=== PATIENT | male | born 1950 | race Caucasian/White ===

== ENCOUNTER 2019-10-12 13:23 | Outpatient (CLI) | payer MEDICARE, SELFPAY ==
--- NOTE | ~2019-10-12 | CT_ITS ---
EXAMINATION: CT lung screening DATE: 10/12/2019 14:01 INDICATION: Personal history of tobacco dependence, current smoker with 45 pack year history TECHNIQUE: Computed tomography (CT) of the chest was performed without intravenous contrast. The dose -length product (DLP) was 396.06 mGy-cm. Automated exposure control and iterative reconstruction tech Daily Aisle were employed. COMPARISON: 08/07/2018 FINDINGS: There is mild emphysema. No suspicious pulmonary nodules are identified. Calcified pulmonar y nodules are consistent with old granulomatous disease. There is no pleural effusion or pneumothorax . The heart size is normal. Calcified coronary artery atherosclerosis is noted. There are no patholog ically enlarged thoracic lymph nodes. Dense calcification of the mitral annulus is noted. There is un changed severe spondylosis at several levels of the lower cervical and thoracic spine. IMPRESSION: 1. Lung-RADS category 1: Negative. Continue annual screening with noncontrast low-dose chest CT in 12 months. Reviewed, dictated and finalized at location A. IMPRESSION: 1. Lung-RADS category 1: Negative. Continue annual screening with noncontrast l ow-dose chest CT in 12 months.
== END 2019-10-12 13:24 | disposition home or self-care (01) ==
PROVIDERS: PCP Family Medicine; Visit Provider Internal Medicine Critical Care Medicine
DX: Z12.2 Encounter for screening for malignant neoplasm of respiratory organs (principal); Z87.891 Personal history of nicotine dependence
CPT/HCPCS: G0297

== ENCOUNTER 2020-05-25 07:55 | Outpatient (CLI) | payer MEDICARE, SELFPAY ==
--- NOTE | ~2020-05-25 | US_ITS ---
EXAMINATION: US art doppler w press LE BI DATE: 05/25/2020 09:00 INDICATION: Peripheral vascular disease, unspecified. TECHNIQUE: Segmental pressures and plethysmographic and Doppler waveforms of the brachial and lower e xtremity arteries were obtained. COMPARISON: None. FINDINGS: Right and left brachial artery pressures of 119 mm Hg and 123 mm Hg, respectively, are concordant (no rmal difference <= 30 mmHg). The right high-thigh pressure index is 1.39 (normal > 1.2). The right ankle-brachial index (DARREL) is 1 .03 (normal >= 0.9-1.0). The right great toe-brachial index (TBI) is 0.46 (normal >= 0.65). Arterial Doppler waveforms are biphasic in common femoral artery and superficial femoral artery, triphasic in popliteal artery, and biphasic at the ankle. The left high-thigh pressure could not be measured due to inability to cuff occlude the arteries. The right low-thigh pressure index is 1.04. The left DARREL is 1.05. The left TBI is 0.52. Arterial Doppler waveforms are biphasic from common femoral artery to the ankle. IMPRESSION: 1. Normal ABIs and decreased TBIs, consistent with arterial occlusive disease. Note that ABIs may be overestimated if arteries are calcified. Reviewed, dictated and finalized at location A. F MECHANICAL ENGINEER
== END 2020-05-25 07:56 | disposition home or self-care (01) ==
LOC: ANHIMG 08:03
PROVIDERS: PCP Family Medicine; Visit Provider Family Medicine
DX: I73.9 Peripheral vascular disease, unspecified (principal); R23.0 Cyanosis
CPT/HCPCS: 93923

== ENCOUNTER 2020-08-10 17:46 | Outpatient (CLI) | payer MEDICARE, SELFPAY | END 2020-08-10 17:47 | disposition home or self-care (01) | LOC: ANHCOVIDVC 17:46 | PROVIDERS: PCP Family Medicine | DX: Z23 Encounter for immunization (principal) | CPT/HCPCS: 0001A; 91300 ==

== ENCOUNTER 2020-08-31 17:29 | Outpatient (CLI) | payer MEDICARE, SELFPAY | END 2020-08-31 17:30 | disposition home or self-care (01) | LOC: ANHCOVIDVC 17:29 | PROVIDERS: PCP Family Medicine | DX: Z23 Encounter for immunization (principal) | CPT/HCPCS: 0002A; 91300 ==

== ENCOUNTER 2021-06-12 10:37 | Outpatient (CLI) | payer MEDICARE, SELFPAY ==
--- NOTE | ~2021-06-12 | CT_ITS ---
EXAMINATION: CT lung screening DATE: 06/12/2021 11:03 INDICATION: Z87.891 - Personal history of nicotine dependence TECHNIQUE: Computed tomography (CT) of the chest was performed without intravenous contrast. Addition al 3D reconstructions utilizing coronal maximum intensity projection (MIP) were performed. Automated exposure control and iterative reconstruction technique were employed. The dose-length product was 60 4.14 mGy-cm. COMPARISON: 10/12/2019 FINDINGS: There are a few unchanged very small scattered calcified pulmonary nodules in the bilateral upper lob es consistent with old granulomatous disease. No other suspicious pulmonary nodules, pneumonia, pulmo nary edema or pleural effusion. Small pneumatocele in the left lower lobe. Heart size is normal. Athe rosclerotic coronary artery calcifications. No pericardial effusion. Thoracic aorta is normal in cheryl reina. No pathologically enlarged thoracic lymphadenopathy. Visualized upper abdomen is unremarkable. S evere spondylosis in the lower cervical and upper and mid thoracic spine. IMPRESSION: 1. Lung-RADS category 1: Negative. Continue annual screening with noncontrast low-dose chest CT in 12 months. Reviewed, dictated and finalized at location A. WHEEL OPERATOR IMPRESSION: 1. Lung-RADS category 1: Negative. Continue annual screening with noncontrast l ow-dose chest CT in 12 months.
== END 2021-06-12 10:38 | disposition home or self-care (01) ==
LOC: ANHIMG 10:41
PROVIDERS: PCP Family Medicine; Visit Provider Nurse Practitioner Family
DX: Z12.2 Encounter for screening for malignant neoplasm of respiratory organs (principal); Z87.891 Personal history of nicotine dependence
CPT/HCPCS: 71271

== ENCOUNTER 2022-06-13 08:10 | Outpatient (CLI) | payer MEDICARE, SELFPAY ==
--- NOTE | ~2022-06-13 | CT_ITS ---
EXAMINATION:CT lung screening DATE: 06/13/2022 08:26 INDICATION: Lung cancer screening. Current smoker with 100 pack year history. TECHNIQUE: Computed tomography (CT) of the chest was performed without intravenous contrast. Automate d exposure control and iterative reconstruction technique were employed. The dose-length product (DLP ) was 491.74 mGy-cm. COMPARISON: Chest CT 06/12/2021 FINDINGS: There is mild emphysema. There is a 2 mm nodule in right upper lobe. Calcified bilateral keith ng nodules are consistent with old granulomatous disease. There is mild atelectasis. No pleural effus ion. The heart size is normal. There are coronary artery calcifications. No pericardial effusion. The re is severe cervical and thoracic spondylosis. IMPRESSION: 1. Lung-RADS category 2: Benign appearance or behavior. Continue annual screening with noncontrast lo w-dose chest CT in 12 months. Reviewed, dictated and finalized at location A. ATION SUPERVISOR IMPRESSION: 1. Lung-RADS category 2: Benign appearance or behavior. Continue annual screeni ng with noncontrast low-dose chest CT in 12 months.
== END 2022-06-13 08:11 | disposition home or self-care (01) ==
PROVIDERS: PCP Family Medicine; Visit Provider Physician Assistant
DX: Z12.2 Encounter for screening for malignant neoplasm of respiratory organs (principal); Z87.891 Personal history of nicotine dependence
CPT/HCPCS: 71271

== ENCOUNTER 2022-09-05 08:05 | Outpatient (CLI) | payer MEDICARE, SELFPAY ==
--- NOTE | 2022-10-01 11:21 | WPDSLEEPSTUD ---
Sleep Study Date of Study: 09/05/22 Ordering Provider: ROMA Herrera Interpreting Physician: Dede Munoz DO Sleep Study Type: BiPAP Titration Height: 1.75 m Weight: 138.346 kg Body Mass Index: 45.0 Neck Circumference (inches): 16 [place]: 5 Reason for Sleep Study Abnormal nocturnal oximetry while on CPAP 14 cm H2O with an EPR of 3. Sleep History The patient is a 71-year-old male with anemia, benign prostatic hyperplasia, morbid obesity, Parkinson's disease, peripheral vascular disease, venous stasis dermatitis of bilateral lower extremities, current tobacco use, COPD and MARTIN on CPAP that had a sleep study ordered by the Pulmonary group for further evaluation of an abnormal nocturnal oximetry while on CPAP. The patient denies awakening from sleep short of breath. He rarely awakens at night with heartburn, belching or cough. He denies snoring loudly enough that others complain. He denies having trouble sleeping when he has a cold. He denies waking up gasping for air throughout the night. He rarely has breathing problems at night observed by himself or others. He denies sweating excessively at night. He denies having heart palpitations or irregular heartbeats during the night. He rarely falls asleep during the day and never falls asleep while driving. He denies sleep paralysis, cataplexy and hypnagogic / hypnopompic hallucinations. He denies having trouble at school or work due to sleepiness. He denies feeling afraid of going to sleep. He denies having nightmares and denies remembering his dreams. He denies having thoughts racing through his mind. He denies feeling sad, depressed or anxious. He denies having muscular tension. He rarely notices parts of his body jerk. He rarely kicks during the night. He denies having crawling and aching feelings in his legs. He rarely has leg pain during the night. He denies grinding his teeth during sleep and denies awakening with morning jaw pain. He is rarely bothered by pain during the day and rarely awakened by pain during the night. He rarely wakes up feeling stiff in the morning. He rarely wakes up with sore or achy muscles. He rarely wakes up with pain in the neck, spine and other joints. The patient does not have a set bedtime or set wake-up time. He typically wakes up once throughout the night to urinate. He typically gets 6 hours of sleep per night. He currently lives with a friend. He does not consume any caffeinated beverages within 2 hours of bedtime. He does not engage in physical exercise before bedtime. He will read and watch television before falling asleep. He denies taking naps in the afternoon or the evening. He does consume caffeinated beverages throughout the day. He currently smokes half a pack of cigarettes per day. He consumes alcoholic beverages daily. He denies recreational drug use. [facility] Past Medical History Medical History Abdominal aortic aneurysm (AAA) 3.0 cm to 5.5 cm in diameter in male infrarenal AAA followed by vascular surgeon with current 3.8 cm by ultrasound 12/27/2020 Anemia Hemoglobin 12.5, hematocrit 38.6, iron 58, vitamin B12 852, folic acid 4.7 on 09/15/2021. Hemoglobin normal at 13.6 on 05/14/2022. BMI 38.0-38.9,adult BMI 45.0-49.9, adult Body mass index (BMI) 40.0-44.9, adult (10/06/18) BPH without obstruction/lower urinary tract symptoms PSA normal at 0.17 on 05/09/2021 Chronic pain of right knee Encounter for hepatitis C screening test for low risk patient (07/30/20) hepatitis-C screening negative on 07/30/2020 Encounter for prostate cancer screening PSA 0.76 on 05/14/2022. Folic acid deficiency (09/15/21) level low at 4.7 on 09/15/2021. Level normal at 11.5 on 05/14/2022 with hemoglobin 13.6. Fungal nail infection Insomnia Morbid obesity with BMI of 40.0-44.9, adult Morbid obesity with BMI of 45.0-49.9, adult Parkinsons Peripheral vascular disease Polyp
[2022-10-01 12:02] VITALS: BMI 45.0
== END 2022-09-06 06:17 | disposition home or self-care (01) ==
LOC: ANHCSM 08:06
PROVIDERS: PCP Family Medicine; Visit Provider Physician Assistant
DX: G47.33 Obstructive sleep apnea (adult) (pediatric) (principal); Z99.89 Dependence on other enabling machines and devices; E66.01 Morbid (severe) obesity due to excess calories; Z68.42 Body mass index [BMI] 45.0-49.9, adult; F17.210 Nicotine dependence, cigarettes, uncomplicated
CPT/HCPCS: 95811

== ENCOUNTER 2023-03-06 08:47 | Outpatient (CLI) | payer MEDICARE, SELFPAY ==
[2023-03-06 09:00] VITALS: PULSE 78; O2SAT 97
[2023-03-06 09:05] VITALS: PULSE 100; O2SAT 93
[2023-03-06 09:15] VITALS: PULSE 80; O2SAT 96
--- NOTE | 2023-03-06 09:20 | HOMEO2EVAL ---
Evaluation was performed at [facility] Home Oxygen Evaluation RC: Home Oxygen (O2) Evaluation Start: 03/06/23 09:18 Freq: Status: Active Protocol: RPE Activity Type Activity Date Activity User E-sign Co-sign Detail Recorded Client Recorded Date Recorded By Document 03/06/23 09:00 DJO [email or web address] 03/06/23 09:20 DJO Document 03/06/23 09:05 DJO [email or web address] 03/06/23 09:20 DJO Document 03/06/23 09:15 [email or web address] [email or web address] 03/06/23 09:20 DJO 03/06/23 03/06/23 03/06/23 09:00 09:05 09:15 Home O2 Evaluation [Oxygen] -Test Phase Resting Exercise Resting -Oxygen Delivery Room Air Room Air Room Air [Pulse Oximetry] -Pulse Oximetry (90-100 %) 97 93 96 [Pulse Rate] -Pulse Rate (60-100 beats/min) 78 100 80 [Evaluation] -Activity Tolerance Good [Charges] -Treatment Charges O2 Evaluation - Outpatient
--- NOTE | 2023-03-06 15:25 | WPDPFTINT ---
PFT Procedure Performed PFT Procedure Performed Spirometry with Pre/Post Bronchodilator Plethysmography (Lung Vol) Diffusing Cap (DLCO) Flow Vol Loop PFT Interpretation Lung volumes were measured with the body plethysmography method. Lung volumes are unremarkable. Spirometry showed diminished expiratory flow rates and a diminished FEV1 to FVC ratio of 63%, indicative of obstructive airway disease. Following administration of a bronchodilator there was no significant increase in the expiratory flow rates. Lung diffusion capacity is mildly reduced at 60% predicted. The flow-volume loop is consistent with obstructive airway disease. Impression: Moderate obstructive airway disease with no response to bronchodilators on this testing. Mild reduction in lung diffusion capacity.
== END 2023-03-06 08:48 | disposition home or self-care (01) ==
PROVIDERS: PCP Family Medicine; Visit Provider Physician Assistant
DX: J44.9 Chronic obstructive pulmonary disease, unspecified (principal)
CPT/HCPCS: 94060; 94618; 94726; 94729

== ENCOUNTER 2023-03-20 09:01 | Outpatient (CLI) | payer MEDICARE, SELFPAY ==
--- NOTE | 2023-03-20 11:15 | NEURO_ITS ---
Impression: # Complains of numbness of hands. # Severe bilateral Carpal Tunnel Syndrome. # Bilateral ulnar neuropathy across the elbows. # Needle/EMG exam abnormal with neurogenic changes. # Clinical correlation recommended. Nerve Conduction Studies Anti Sensory Summary Table Stim Site NR Peak (ms) P-T Amp (?V) Site1 Site2 Delta-P (ms) Dist (cm) Vijay (m/s) Left Median Anti Sensory (2-3nd Digit) NO RESPONSE Wrist NR Wrist 2-3nd Digit 14.0 Wrist NR Wrist 2-3nd Digit 14.0 Right Median Anti Sensory (2-3nd Digit) NO RESPONSE Wrist NR Wrist 2-3nd Digit 14.0 Wrist 6.0 29.6 Wrist 2-3nd Digit 14.0 Left Radial Anti Sensory (Base 1st Digit) Wrist 3.8 12.1 Wrist Base 1st Digit 3.8 0.0 Right Radial Anti Sensory (Base 1st Digit) Wrist 3.4 11.9 Wrist Base 1st Digit 3.4 0.0 Left Ulnar Anti Sensory (5th Digit) NO RESPONSE Wrist NR Wrist 5th Digit 14.0 Right Ulnar Anti Sensory (5th Digit) Wrist 3.6 64.6 Wrist 5th Digit 3.6 14.0 39 Motor Summary Table Stim Site NR Onset (ms) O-P Amp (mV) Site1 Site2 Delta-0 (ms) Dist (cm) Vijay (m/s) Left Median Motor (Abd Poll Brev) Wrist 7.1 0.6 Elbow Wrist 6.2 32.0 52 Elbow 13.3 0.7 Right Median Motor (Abd Poll Brev) Wrist 6.8 1.5 Elbow Wrist 5.9 33.0 56 Elbow 12.7 1.6 Left Ulnar Motor (Abd Dig Minimi) Wrist 2.7 5.3 A Elbow Wrist 7.0 33.0 47 A Elbow 9.7 5.6 B Elbow Wrist 5.5 26.0 47 B Elbow 8.2 1.4 Right Ulnar Motor (Abd Dig Minimi) Wrist 3.4 4.2 A Elbow Wrist 7.9 34.0 43 A Elbow 11.3 3.1 B Elbow Wrist 4.4 23.0 52 B Elbow 7.8 0.3 F Wave Studies NR F-Lat (ms) L-R F-Lat (ms) Left Median (Mrkrs) (Abd Poll Brev) 37.39 1.05 Right Median (Mrkrs) (Abd Poll Brev) 36.34 1.05 Left Ulnar (Mrkrs) (Abd Dig Min) 37.37 0.00 Right Ulnar (Mrkrs) (Abd Dig Min) 37.37 0.00 EMG Side Muscle Nerve Root Ins Act Fibs Amp Dur Recrt Comment Right 1stDorInt Ulnar C8-T1 Nml Nml Nml >12ms Reduced Right Ext Indicis Radial (Post Int) C7-8 Nml Nml Nml Nml Nml Right Ext Digitorum Radial (Post Int) C7-8 Nml Nml Nml Nml Nml Right BrachioRad Radial C5-6 Nml Nml Nml Nml Nml Right PronatorTeres Median C6-7 Nml Nml Nml >12ms Nml Right Abd Poll Brev Median C8-T1 Nml Nml Nml >12ms Reduced Left 1stDorInt Ulnar C8-T1 Nml Nml Nml >12ms Reduced Left Ext Indicis Radial (Post Int) C7-8 Nml Nml Nml Nml Nml Left Ext Digitorum Radial (Post Int) C7-8 Nml Nml Nml Nml Nml Left BrachioRad Radial C5-6 Nml Nml Nml Nml Nml Left PronatorTeres Median C6-7 Nml Nml Nml >12ms Nml Left Abd Poll Brev Median C8-T1 Nml Nml Nml >12ms Reduced Right ABD Dig Min Ulnar C8-T1 Nml Nml Nml >12ms Reduced Left ABD Dig Min Ulnar C8-T1 Nml Nml Nml >12ms Reduced MTDD
== END 2023-03-20 09:02 | disposition home or self-care (01) ==
PROVIDERS: PCP Family Medicine; Visit Provider Family Medicine
DX: R20.2 Paresthesia of skin (principal); G56.03 Carpal tunnel syndrome, bilateral upper limbs; G56.23 Lesion of ulnar nerve, bilateral upper limbs
CPT/HCPCS: 95886; 95911

== ENCOUNTER 2023-05-31 03:50 | Day surgery (SDC) | payer MEDICARE, SELFPAY ==
[2023-04-23 14:00] VITALS: BMI 43.9
--- NOTE | 2023-05-03 11:25 | SUR.PREOP ---
Patient called regarding upcoming procedure. Reviewed preop instructions, appointment times, and procedure prep.
--- NOTE | 2023-05-03 11:39 | SUR.PREOP ---
Patient called regarding upcoming procedure. Reviewed preop instructions, appointment times, and procedure prep. Suprep instructions sent to patient and reviewed medications with patient.
--- NOTE | 2023-05-10 09:23 | SUR.PREOP ---
Spoke with patient and verified date and time of his rescheduled appointment. Patient stated there is no new medications or medical history that needs to be added to chart.
--- NOTE | 2023-05-29 09:55 | SUR.PREOP ---
Patient called regarding upcoming procedure. Reviewed preop instructions, appointment times, and procedure prep.
[2023-05-31 07:21] VITALS: BP 166/75; PULSE 76; RESP 20; TEMP 36.3; O2SAT 98
--- NOTE | 2023-05-31 07:23 | PM.HPGS ---
History of Present Illness History of Present Illness Consent: Risks, benefits, and alternatives have been discussed and questions answered. Patient agrees to proceed with procedure. Chief complaint: hx colon polyps Narrative: Jovany Murrieta is a 72 year old male Presents for screening colonoscopy. Patient has a history of colon polyps identified at several previous colonoscopies. Most recently 2019. Patient reports that his current weight appetite and bowel movements are normal. He denies abdominal pain. Patient has had no bleeding. Family history is noncontributory. Review of Systems Review of Systems: Review of systems noncontributory. [facility] Past Medical History Medical History (Updated 05/25/23 @ 08:31 by Jose Armando Quarles MD) Abdominal aortic aneurysm (AAA) 3.0 cm to 5.5 cm in diameter in male infrarenal AAA followed by vascular surgeon with current 3.8 cm by ultrasound 12/27/2020 Anemia Hemoglobin 12.5, hematocrit 38.6, iron 58, vitamin B12 852, folic acid 4.7 on 09/15/2021. Hemoglobin normal at 13.6 on 05/14/2022. BMI 38.0-38.9,adult BMI 45.0-49.9, adult Body mass index (BMI) 40.0-44.9, adult (10/06/18) BPH without obstruction/lower urinary tract symptoms PSA normal at 0.17 on 05/09/2021 Carpal tunnel syndrome on both sides Severe bilateral carpal tunnel syndrome on EMG and nerve conduction study on 03/20/2023. Chronic pain of right knee Encounter for hepatitis C screening test for low risk patient (07/30/20) hepatitis-C screening negative on 07/30/2020 Encounter for prostate cancer screening PSA 0.76 on 05/14/2022. Folic acid deficiency (09/15/21) level low at 4.7 on 09/15/2021. Level normal at 11.5 on 05/14/2022 with hemoglobin 13.6. Fungal nail infection Insomnia Morbid obesity with BMI of 40.0-44.9, adult Morbid obesity with BMI of 45.0-49.9, adult Parkinsons Peripheral vascular disease Polyp of colon history of adenomatous polyps Preoperative clearance Sleep disturbance SOB (shortness of breath) on exertion Tobacco use disorder, continuous 1/2 of a pack daily Toe cyanosis Trigger finger of right hand Ulnar neuropathy of both upper extremities (~03/20/23) bilateral ulnar neuropathy on EMG and nerve conduction study 03/20/2023. UTI (urinary tract infection) Venous stasis dermatitis of both lower extremities Surgical History Surgical History History of total left knee replacement Family History Family History Father Diabetes mellitus, Onset Age: 68 Malignant neoplasm of prostate, Onset Age: 78 Family history of suicide, Onset Age: 78 Family history of Parkinson's disease, Onset Age: 78 Mother Depression, Onset Age: 82 Family history of malignant neoplasm of breast Family history of mental disorder, Onset Age: 82 Family history of malignant neoplasm of breast in first degree relative, Onset Age: 82 Grandparent Acute myocardial infarction, Onset Age: 65 Sibling Patient's brother is in good health Social History Social History Social History: 1-2ppd history. Now down to 0.5-1ppd. Has a 75-100 pack year. Smoking packs per day: 0.5 Smoking cigarettes per day: 10.0 Years smoked: 50 Smoking pack-years: 25.00 Smoking status: Light tobacco smoker Tobacco type: cigarettes Second hand tobacco smoke exposure: Yes Alcohol intake: never Substance use: never Substance use type: does not use Current Housing: Decline to Answer Concerned About Future Housing: Decline to Answer Difficulty Paying Gas/Electric Bills: Decline to Answer Difficulty Paying for Meds: Decline to Answer Currently Unemployed: Decline to Answer Education: Decline to Answer Difficulty w/ Childcare or Family Care: Decline to Answer Living arrangements: with friend(s) Ad
[2023-05-31] MEDS: LACTATED RINGERS 1,000 ML 150 ML IV CONT (07:30)
--- NOTE | 2023-05-31 08:24 | WPDANESEPPF ---
Anes - Initial Pre Proc Eval Procedure: Operation Date: 05/31/23 08:30 Proposed Procedures p Colonoscopy - Edwin Banerjee MD Date/Time: 05/31/23 08:24 Surgeon: Edwin Banrejee MD Pre Op Diagnosis: hx colon polyps Patient Data Age: 72 Gender: M Height: 1.75 m Weight: 130 kg Last Vital Signs Temp 97.3 F L 05/31/23 07:21 Pulse 76 05/31/23 07:21 Resp 20 05/31/23 07:21 BP 166/75 H 05/31/23 07:21 Pulse Ox 98 05/31/23 07:21 O2 Del Method Room Air 05/31/23 07:21 Allergies Allergy/AdvReac Type Severity Reaction Status Date / Time No Known Allergies Allergy Verified 05/31/23 07:19 Home Medications Medication Instructions Recorded Confirmed Type aspirin 81 mg tablet,delayed 81 mg PO DAILY 04/09/19 04/23/23 History release cyanocobalamin (vitamin B-12) 2,500 mcg sublingual DAILY 04/09/19 04/23/23 History 2,500 mcg sublingual lozenge multivitamin,[id number]-[id number] 1 tablet PO DAILY 04/09/19 04/23/23 History (Complete Multivitamin tablet) folic acid 1 mg tablet 1 mg PO DAILY #90 tabs 09/19/21 04/23/23 Rx atorvastatin 40 mg tablet 40 mg PO DAILY #90 tabs 07/24/22 04/23/23 Rx fluticasone 250 mcg-salmeterol 50 1 inh inhalation BID #180 ea 07/24/22 04/23/23 Rx mcg/dose blistr powdr for inhalation (Advair Diskus) roflumilast 500 mcg tablet 500 mcg PO DAILY #90 tabs 08/15/22 05/31/23 Rx (Daliresp) sildenafil 100 mg tablet (Viagra) 100 mg PO DAILY PRN sexual 09/24/22 04/23/23 Rx activity #60 tabs tamsulosin 0.4 mg capsule (Flomax) 0.4 mg PO QHS #90 caps 09/24/22 04/23/23 Rx irbesartan 300 mg tablet 300 mg PO DAILY #90 tabs 10/22/22 04/23/23 Rx metoprolol succinate 100 mg 100 mg PO DAILY #90 tabs 12/18/22 04/23/23 Rx tablet,extended release 24 hr ropinirole 5 mg tablet 5 mg PO BID #180 tabs 12/18/22 04/23/23 Rx umeclidinium 62.5 mcg/actuation See Rx Instructions .Route 01/21/23 04/23/23 Rx blister powder for inhalation .COMPLEX #90 grams (Incruse Ellipta) alprazolam 0.25 mg tablet (Xanax) 0.25 mg PO DAILY PRN anxiety #60 02/06/23 04/23/23 Rx tabs albuterol sulfate 90 mcg/actuation See Rx Instructions .Route 02/12/23 04/23/23 Rx aerosol inhaler .COMPLEX #25.5 grams levothyroxine 100 mcg tablet 100 mcg PO DAILY #90 tabs 05/15/23 05/31/23 Rx Patient hx anesthesia problems: none Family hx anesthesia problems: none Results Review: All pre-operative results and documents have been reviewed as part of the pre-operative evaluation. [facility] Past Medical History Medical History (Updated 05/25/23 @ 08:31 by Jose Armando Quarles MD) Abdominal aortic aneurysm (AAA) 3.0 cm to 5.5 cm in diameter in male infrarenal AAA followed by vascular surgeon with current 3.8 cm by ultrasound 12/27/2020 Anemia Hemoglobin 12.5, hematocrit 38.6, iron 58, vitamin B12 852, folic acid 4.7 on 09/15/2021. Hemoglobin normal at 13.6 on 05/14/2022. BMI 38.0-38.9,adult BMI 45.0-49.9, adult Body mass index (BMI) 40.0-44.9, adult (10/06/18) BPH without obstruction/lower urinary tract symptoms PSA normal at 0.17 on 05/09/2021 Carpal tunnel syndrome on both sides Severe bilateral carpal tunnel syndrome on EMG and nerve conduction study on 03/20/2023. Chronic pain of right knee Encounter for hepatitis C screening test for low risk patient (07/30/20) hepatitis-C screening negative on 07/30/2020 Encounter for prostate cancer screening PSA 0.76 on 05/14/2022. Folic acid deficiency (09/15/21) level low at 4.7 on 09/15/2021. Level normal at 11.5 on 05/14/2022 with hemoglobin 13.6. Fungal nail infection Insomnia Morbid obesity with BMI of 40.0-44.9, adult Morbid obesity with BMI of 45.0-49.9, adult Parkinsons Peripheral vascular disease Polyp of colon history of adenomatous polyps Preoperative clearance Sleep disturbance SOB (shortness of breath) on exertion Tobacco use disorder, continuous 1/2 of a pack daily Toe cyanosis Trigger finger of right hand Ulnar neuropathy of both upper ext
[2023-05-31 09:03] VITALS: BP 117/62; PULSE 84; RESP 26; O2SAT 98
[2023-05-31 09:13] VITALS: BP 122/62; PULSE 80; RESP 24; O2SAT 99
[2023-05-31 09:23] VITALS: BP 134/62; PULSE 81; RESP 21; O2SAT 99
== END 2023-05-31 09:30 | disposition home or self-care (01) ==
PROVIDERS: PCP Family Medicine; Visit Provider Internal Medicine Gastroenterology
PROC: 0DJD8ZZ Inspection of Lower Intestinal Tract, Via Natural or Artificial Opening Endoscopic (ICD-10-PCS; CPT 45378; principal; 2023-05-31 08:30)
DX: Z12.11 Encounter for screening for malignant neoplasm of colon (principal); D12.2 Benign neoplasm of ascending colon; D12.4 Benign neoplasm of descending colon; E66.01 Morbid (severe) obesity due to excess calories; Z68.41 Body mass index [BMI] 40.0-44.9, adult; G20.A1 Parkinson's disease without dyskinesia, without mention of fluctuations; Z96.652 Presence of left artificial knee joint; F17.210 Nicotine dependence, cigarettes, uncomplicated
CPT/HCPCS: 45385; 88305; J2704; J7120

== ENCOUNTER 2023-06-14 14:15 | Outpatient (CLI) | payer MEDICARE, SELFPAY ==
--- NOTE | ~2023-06-14 | CT_ITS ---
CT Scan of the Chest without Contrast: Clinical Indication: Lung cancer screening, personal history of nicotine dependence Technique: Contiguous sections were acquired throughout the chest without intravenous contrast. Dose reduction technique was used on this scan by utilizing automated exposure control and iterative recon struction technique. The dose-length product (DLP) was 531.57 mGy-cm. COMPARISON: 06/13/2022 Findings: There is no evidence of any significant mediastinal, hilar or axillary lymphadenopathy. There are foc i calcifications of the aorta and coronary arteries. There is no evidence of pleural or pericardial effusion. The lungs are clear. No pulmonary nodules or infiltrates are noted. Images through the upper abdomen reveal stable left adrenal nodule, most likely adenoma. Impression: Lung RADS 1: Negative. 12 month follow-up screening CT advised. Reviewed, dictated and finalized at [facility]. 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 12 month follow-up screening CT advised.
== END 2023-06-14 14:16 | disposition home or self-care (01) ==
PROVIDERS: PCP Family Medicine; Visit Provider Physician Assistant
DX: Z12.2 Encounter for screening for malignant neoplasm of respiratory organs (principal); Z87.891 Personal history of nicotine dependence
CPT/HCPCS: 71271

== ENCOUNTER → 2023-08-08 11:37 | Outpatient (CLI) | payer MEDICARE, SELFPAY ==
--- NOTE | ~2023-08-08 | XR_ITS ---
AP view of the pelvis and AP and lateral views of the left hip Clinical history: Pain Findings: No acute fracture or dislocation is seen. Osseous alignment is anatomic. Bilateral hip and SI joint spaces are preserved. Degenerative spondylosis of the lower lumbar spine noted. Soft tissues are unremarkable. Impression: Degenerative spondylosis of the lower lumbar spine. Reviewed, dictated and finalized at location . 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
--- NOTE | ~2023-08-08 | XR_ITS ---
EXAMINATION: XR lumbar spine min 4V DATE: 08/08/2023 12:03 INDICATION: Low back pain TECHNIQUE: Anteroposterior, lateral, and bilateral oblique views of the lumbar spine, and cone-down l ateral view of the lumbosacral junction were obtained. COMPARISON: None. FINDINGS: There are 15 degrees of lumbar levoscoliosis. There is severe loss of intervertebral disc s pace height on the right at L4-5. There is moderate loss of intervertebral disc space height at L2-3 and L5-S1. There are 2 mm of anterolisthesis of L3 on L4. The vertebral body heights are maintained. No fracture is identified. There is severe facet joint osteoarthritis of the mid and lower lumbar spi ne. Calcified atherosclerosis is noted. IMPRESSION: 1. Lumbar levoscoliosis and severe spondylosis without acute findings. 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
== END ==
PROVIDERS: PCP Family Medicine; Visit Provider Family Medicine
DX: M54.41 Lumbago with sciatica, right side (principal); M41.86 Other forms of scoliosis, lumbar region; M43.06 Spondylolysis, lumbar region
CPT/HCPCS: 72110; 73502

== ENCOUNTER 2023-08-08 12:22 | Outpatient (CLI) | payer MEDICARE, SELFPAY ==
[2023-08-08 13:49] LABS: Prothrombin Time 13.6 Seconds (11.1-14.7)
[2023-08-08 13:50] LABS: Partial Thromboplastin Time 30.1 SECONDS (22.3-36.8)
== END 2023-08-08 12:23 | disposition home or self-care (01) ==
LOC: ANHSURGERY 12:28
PROVIDERS: Anesthesiology; PCP Family Medicine; Visit Provider Plastic Surgery
DX: Z01.818 Encounter for other preprocedural examination (principal); N28.9 Disorder of kidney and ureter, unspecified
CPT/HCPCS: 36415; 85610; 85730

== ENCOUNTER 2023-08-14 00:27 | Day surgery (SDC) | payer MEDICARE, SELFPAY ==
[2023-08-08 08:47] VITALS: BMI 40.8
--- NOTE | 2023-08-08 09:16 | PC.NURSE ---
Addendum entered by Renetta Loyola RN 08/08/23 09:30: INSTRUCTED PATIENT THAT HE NEEDS TO BE NPO FOR 8 HOURS PRE-OP- NOTHING AFTER 11:30PM NIGHT BEFORE SURGERY. HE RELAYS UNDERSTANDING. Original Note: Report to the Outpatient Waiting Room, entrance under the green pavilion located off [facility], at time __6:00AM on date __08/14/23 . Planned Procedure Time: __7:30AM . Time changes happen often and if your time is changed the preop area will call you the afternoon before. - You and your visitor will be asked to self-screen and do not enter if you have any COVID symptoms. - A mask is optional within the hospital at this time. Patients may have clear liquids (water, carbonated beverages, clear teas, apple juice) until 3 hours prior to surgery with a maximum of 20 ounces. - No food from midnight until time of surgery - Infants may have breast milk until 4 hours before surgery, infant formula 6 hours prior to surgery. - Children will be allowed to drink immediately following surgery. If applicable, please bring a bottle or sippy cup to assist with drinking. Juice, water, soda, and popsicles are readily available. For infants on formula, please bring formula the day of surgery. Pacifiers are allowed. Take the following medications with a SIP of water the morning of surgery: __METOPROLOL, LEVOTHYROXINE, DALIRESP, ADVAIR DISKUS INHALER, AND INCRUSE ELLIPTA INHALER. MAY TAKE ALBUTEROL INHALER AND ALPRAZOLAM NEEDED. DO NOT STOP ANY OF YOUR OTHER PRESCRIPTION MEDICATIONS PRIOR TO SURGERY ?EXCEPT THE FOLLOWING Medications to discontinue per physician ____HOLD ASPIRIN PER DR SANDOVAL. HOLD ALL VITAMINS/SUPPLEMENTS 3 DAYS PRE-OP PER ANESTHESIA- LAST DOSE 08/10/23 Please no make-up, nail tajik, hairspray, perfume, deodorant, or body powder the day of surgery. No jewelry (including any body piercings) or valuables the day of surgery, leave them at home. Please take a shower or bath the night before, or the morning of, surgery with an antibacterial soap. Wear comfortable, loose fitting clothing. Children are encouraged to wear pajamas. - Jewelry must be removed prior to entering the operating room. Rings and piercings that are not removed may be cut off. - The hospital will not accept responsibility for valuables. - Please leave all valuables, including medications, at home the day of surgery. If you are going home after surgery, a licensed route driver must drive you home. - NO public transportation without another adult if you receive anesthesia. - We recommend that an adult stay with you for 24 hours following discharge. - We also recommend that you do not drive, make important decision, drink alcoholic beverages, or take any drugs that were not prescribed by your health care provider for at least 24 hours after your discharge time. For Pediatric surgeries, we recommend two adults accompany the child home. Follow any additional instructions given to you from your surgeon. If you or anyone in your household have experienced Covid symptoms in the past week, please notify your surgeon or the nurse liaison at the phone number below for possible testing. Telephone instructions given to ____PATIENT and asked if any additional questions and then verbalized understanding. Patient advised to call surgeon office or pre surgery nurse liaison [phone] if any additional questions.
--- NOTE | 2023-08-13 15:56 | WPDANESEPPF ---
Anes - Initial Pre Proc Eval Procedure: Operation Date: 08/14/23 07:30 Proposed Procedures p Right Endoscopic Carpal Tunnel Release, Possible Open, Right Cubital Tunnel Release, - Iveth Nixon MD s Right Ring Finger A-1 Bebe Release - Iveth Nixon MD Date/Time: 08/13/23 15:56 Surgeon: Iveth Nixon MD Pre Op Diagnosis: right carp and cub tunnel,rt ring trigger finger Patient Data Age: 72 Gender: M Height: 1.78 m Weight: 129 kg Allergies Allergy/AdvReac Type Severity Reaction Status Date / Time No Known Allergies Allergy Verified 08/14/23 06:06 Home Medications Medication Instructions Recorded Confirmed Type aspirin 81 mg tablet,delayed 81 mg PO DAILY 04/09/19 08/14/23 History release cyanocobalamin (vitamin B-12) 2,500 mcg sublingual DAILY 04/09/19 08/14/23 History 2,500 mcg sublingual lozenge multivitamin,ea-opap-ezkcevkv 1 tablet PO DAILY 04/09/19 08/14/23 History (Complete Multivitamin tablet) folic acid 1 mg tablet 1 mg PO DAILY #90 tabs 09/19/21 08/14/23 Rx sildenafil 100 mg tablet (Viagra) 100 mg PO DAILY PRN sexual 09/24/22 08/08/23 Rx activity #60 tabs tamsulosin 0.4 mg capsule (Flomax) 0.4 mg PO QHS #90 caps 09/24/22 08/08/23 Rx atorvastatin 40 mg tablet 40 mg PO DAILY #90 tabs 07/12/23 08/08/23 Rx fluticasone 250 mcg-salmeterol 50 1 inh inhalation BID #180 ea 07/12/23 08/08/23 Rx mcg/dose blistr powdr for inhalation (Advair Diskus) umeclidinium 62.5 mcg/actuation See Rx Instructions .Route 07/12/23 08/08/23 Rx blister powder for inhalation .COMPLEX #90 grams (Incruse Ellipta) albuterol sulfate 90 mcg/actuation See Rx Instructions .Route 08/02/23 08/14/23 Rx aerosol inhaler .COMPLEX #25.5 grams alprazolam 0.25 mg tablet (Xanax) 0.25 mg PO DAILY PRN anxiety #60 08/08/23 08/08/23 Rx tabs ferrous sulfate 325 mg (65 mg 325 mg PO DAILY 08/08/23 08/14/23 History iron) tablet (iron) irbesartan 300 mg tablet 150 mg PO BID 08/08/23 08/08/23 History levothyroxine 100 mcg tablet 100 mcg PO QAM 08/08/23 08/14/23 History metoprolol succinate 100 mg 100 mg PO QAM 08/08/23 08/14/23 History tablet,extended release 24 hr roflumilast 500 mcg tablet 500 mcg PO QAM 08/08/23 08/08/23 History (Daliresp) ropinirole 5 mg tablet 5 mg PO HS PRN Restless Leg(S) 08/08/23 08/08/23 History Patient hx anesthesia problems: none Family hx anesthesia problems: none Results Review: All pre-operative results and documents have been reviewed as part of the pre-operative evaluation. [facility] Past Medical History Medical History (Updated 08/08/23 @ 17:06 by Jose Armando Quarles MD) Abdominal aortic aneurysm (AAA) 3.0 cm to 5.5 cm in diameter in male infrarenal AAA followed by vascular surgeon with current 3.8 cm by ultrasound 12/27/2020 Anemia Hemoglobin 12.5, hematocrit 38.6, iron 58, vitamin B12 852, folic acid 4.7 on 09/15/2021. Hemoglobin normal at 13.6 on 05/14/2022. Hemoglobin 12.6, iron 69 with 20% saturation and ferritin 65 with vitamin B12 473 folic acid 16.4 on 08/01/2023. BMI 38.0-38.9,adult BMI 45.0-49.9, adult Body mass index (BMI) 40.0-44.9, adult (10/06/18) BPH without obstruction/lower urinary tract symptoms PSA normal at 0.17 on 05/09/2021 Carpal tunnel syndrome on both sides Severe bilateral carpal tunnel syndrome on EMG and nerve conduction study on 03/20/2023. Chronic left hip pain x-ray of the hips and pelvis on 08/08/2023 reveals no bony defects of the hips. Severe lumbar spondylosis noted. Chronic low back pain with bilateral sciatica X-ray of the lumbar spine on 08/08/2023 reveals severe degenerative disc disease at L4-L5 with severe facet arthritis with moderate disease at L2-L3 and L5-S1. Chronic pain of right knee total knee replacement Encounter for hepatitis C screening test for low risk patient (07/30/20) hepatitis-C screening negative on 07/30/2020 Encounter for prostate cancer screening PSA 0.76 on 05/14/2022. Folic ac
[2023-08-14 06:10] VITALS: BP 153/70; PULSE 66; TEMP 36.2; O2SAT 97
[2023-08-14] MEDS: LACTATED RINGERS 1,000 ML 30 ML IV CONT (07:00)
--- NOTE | 2023-08-14 07:04 | PM.HPGS ---
History of Present Illness History of Present Illness Chief complaint: right carp and cub tunnel,rt ring trigger finger Narrative: Patient seen and examined in pre-operative holding area. No interval change in medical history or symptoms. Patient recalls previous discussion of benefits and alternatives to procedure. Continues to desire to proceed with Right endoscopic poss open carpal tunnel release, right Cubital Tunnel Release and R Ring Finger a1 pullley release. Reviewed procedure, post-op expectations and risks including but not limited to bleeding, infection, injury to tendon/nerve/vessel, decreased hand function, stiffness, RSD, no change or worsening of symptoms. I discussed the possible use of assistants and their participation in the case. Patient stated understanding and signed the consent form wishing to proceed. Review of Systems Review of Systems: All systems reviewed & are unremarkable except as noted in HPI and below PMFSH Past Medical History Medical History (Updated 08/08/23 @ 17:06 by Jose Armando Quarles MD) Abdominal aortic aneurysm (AAA) 3.0 cm to 5.5 cm in diameter in male infrarenal AAA followed by vascular surgeon with current 3.8 cm by ultrasound 12/27/2020 Anemia Hemoglobin 12.5, hematocrit 38.6, iron 58, vitamin B12 852, folic acid 4.7 on 09/15/2021. Hemoglobin normal at 13.6 on 05/14/2022. Hemoglobin 12.6, iron 69 with 20% saturation and ferritin 65 with vitamin B12 473 folic acid 16.4 on 08/01/2023. BMI 38.0-38.9,adult BMI 45.0-49.9, adult Body mass index (BMI) 40.0-44.9, adult (10/06/18) BPH without obstruction/lower urinary tract symptoms PSA normal at 0.17 on 05/09/2021 Carpal tunnel syndrome on both sides Severe bilateral carpal tunnel syndrome on EMG and nerve conduction study on 03/20/2023. Chronic left hip pain x-ray of the hips and pelvis on 08/08/2023 reveals no bony defects of the hips. Severe lumbar spondylosis noted. Chronic low back pain with bilateral sciatica X-ray of the lumbar spine on 08/08/2023 reveals severe degenerative disc disease at L4-L5 with severe facet arthritis with moderate disease at L2-L3 and L5-S1. Chronic pain of right knee total knee replacement Encounter for hepatitis C screening test for low risk patient (07/30/20) hepatitis-C screening negative on 07/30/2020 Encounter for prostate cancer screening PSA 0.76 on 05/14/2022. Folic acid deficiency (09/15/21) level low at 4.7 on 09/15/2021. Level normal at 11.5 on 05/14/2022 with hemoglobin 13.6. Fungal nail infection Insomnia Morbid obesity with BMI of 40.0-44.9, adult Morbid obesity with BMI of 45.0-49.9, adult Parkinsons Peripheral vascular disease Polyp of colon history of adenomatous polyps.multiple colon polyps ascending and descending colon, tubular adenoma X 11, 05/31/2023 with recheck in 3 years. Preoperative clearance Sleep disturbance SOB (shortness of breath) on exertion Tobacco use disorder, continuous 1/2 of a pack daily. Screening CT of the lungs 06/14/2023 was negative. Toe cyanosis arterial Doppler study 05/25/2020 with normal DARREL with decreased TBI bilaterally. Trigger finger of right hand Ulnar neuropathy of both upper extremities (~03/20/23) bilateral ulnar neuropathy on EMG and nerve conduction study 03/20/2023. UTI (urinary tract infection) Venous stasis dermatitis of both lower extremities Surgical History Surgical History History of total left knee replacement Family History Family History Father Diabetes mellitus, Onset Age: 68 Malignant neoplasm of prostate, Onset Age: 78 Family history of suicide, Onset Age: 78 Family history of Parkinson's disease, Onset Age: 78 Mother Depression, Onset Age: 82 Family history of malignant neoplasm of breast Family history of mental disorder, Onset Age: 82 Family history of malignant neoplasm of breast in first
--- NOTE | 2023-08-14 07:05 | W.PM.PROC2 ---
Procedure Note - Detailed Date of Procedure 08/14/23 Pre-op Diagnosis right carpal and cubital tunnel and right ring trigger finger Post-op Diagnosis Same Procedure Performed right ectr CuTR and R RF a1 maritza release Surgeon Iveth Nixon MD [facility] Kristofer Mcmullen PA-C Anesthesia MAC Description of Procedure INFORMED CONSENT: The patient was seen and examined and marked in the pre-op area.? The patient signed the consent form. PROCEDURE IN DETAIL:The patient taken back to OR on the stretcher in supine position. Time out performed with anesthesia, surgeon and staff agreeing on patient's name site and surgery to be performed SCDs were placed on the lower extremities and inflated. A tourniquet was placed on {right} upper extremity and antibiotics given IV After anesthesia administered sedation I injected {10}cc 1%lido with epi and 0.5% marcaine plain at the operative sites The?{right upper extremityy}?was prepped and draped in sterile fashion the??{right upper extremity} was? exsanguinated with Esmarch bandage and tourniquet inflated to 250mmHg I made a transverse incision in the {right} volar distal wrist crease through skin and dermis with 15 blade scalpel.? Littler scissors spread down to antebrachial fascia. A small incision was made in antebrachial fascia allowing access to Carpal tunnel. I proceeded with sequential dilation staying in line with the ring finger and hugging the hook of the hamate.? I then used the synovial elevator to free any adhesions from the underside of the transverse carpal ligament. Next I was able to insert the Microaire endoscopic carpal tunnel device with direct visualization of the transverse fibers on the monitor and proceeded with complete segmental retrograde release of the ligament in its entirety.? I irrigated with normal saline and closed with 4-0 monocryl for dermis and subcuticular closure. Next I proceded with making a longitudinal incision over right ring finger a1 maritza through skin and dermis with a 15 blade scalpel. Littler scissors were used to spread down to the A1 maritza. I made an incision in the maritza with 15 blade scalpel then used littler scissors to spread above and below it proximally and distaslly and completed incision entirely. Ragnell retractors were used to withdraw the FDS and FDP tendons for inspection. They were free of masses and gliding smoothly in the sheath without trggering or crepitus. I irrigated with normal saline and closed the incision with 4-0 chromic. I next proceeded with making a longitudinal incision between two heads for flexor carpi ulnaris at end of {right} cubital tunnel with 15 blade scalpel.? Littler scissors were used to spread down to FCU fascia.? An incision was made in FCU fascia and ulnar nerve identified exiting cubital tunnel.? I proceeded with complete retrograde release of the cubital tunnel including 7cm proximal for the intermuscular septum.? The nerve appeared healthy with visible vaso nervorum.? There was no subluxation on full elbow range of motion. ? I irrigated with normal saline and closure with 4-0 monocryl for dermis and subcuticular. A dressing of xeroform to ring finger and Dermabond to wrist and elbow followed by, 4x4s, alejandro, and a volar wrist splint and posterior elbow splint was applied for patient safety, security, and comfort and secured with an wandy bandage after the tourniquet was let down noting the hand was warm and well perfused. The patient was then awaken from anesthesia and transferred to the recovery room in stable condition.? Complications - none EBL- 2cc Disposition - home in stable conditions Kristofer Mcmullen PA-C was essential for positioning, retraction, closure, and dressing placement [facility] Billing Surgery - Charge Forward: Surgery Billing ([id number], and [id number] for kristofer)
[2023-08-14] MEDS: ceFAZolin 3 GM/D5W 100 ML 100 ML IVPB (07:32)
[2023-08-14] MEDS: LIDO 1%/EPINEPHRINE 1:100,000 50 ML VIAL 15 ML INFILTRATE (07:55)
[2023-08-14 08:11] VITALS: BP 120/69; PULSE 64; RESP 14; O2SAT 99
[2023-08-14 08:40] VITALS: BP 130/69; PULSE 66; RESP 14; O2SAT 93
[2023-08-14 08:50] VITALS: BP 139/70; PULSE 59; RESP 14
== END 2023-08-14 08:58 | disposition home or self-care (01) ==
PROVIDERS: PCP Family Medicine; Visit Provider Plastic Surgery
PROC: 01N54ZZ Release Median Nerve, Percutaneous Endoscopic Approach (ICD-10-PCS; CPT 29848; principal; 2023-08-14 07:30)
PROC: (CPT 26055; 2023-08-14 07:30)
DX: G56.01 Carpal tunnel syndrome, right upper limb (principal); G56.21 Lesion of ulnar nerve, right upper limb; M65.341 Trigger finger, right ring finger; I71.43 Infrarenal abdominal aortic aneurysm, without rupture; N40.0 Benign prostatic hyperplasia without lower urinary tract symptoms; G20.A1 Parkinson's disease without dyskinesia, without mention of fluctuations; I73.9 Peripheral vascular disease, unspecified; E66.01 Morbid (severe) obesity due to excess calories; Z68.41 Body mass index [BMI] 40.0-44.9, adult; F17.210 Nicotine dependence, cigarettes, uncomplicated; Z79.82 Long term (current) use of aspirin; Z79.51 Long term (current) use of inhaled steroids
CPT/HCPCS: 29848; 26055; 64718; 36415; 85610; 85730; J0690; J2405; J2704; J3010; J7120

== ENCOUNTER 2023-10-17 09:27 | Outpatient (CLI) | payer MEDICARE, SELFPAY ==
[2023-10-17 09:53] LABS: Hematocrit 39.1 % (42.0-52.0); Hemoglobin 12.4 g/dL (14.0-18.0)
[2023-10-17 10:03] LABS: Anion Gap 3 mmol/L (4-12); Blood Urea Nitrogen 16 mg/dL (9-20); Calcium 9.1 mg/dL (8.4-10.2); Carbon Dioxide 32 mmol/L (22-30); Chloride 104 mmol/L (98-107); Estimated Glomerular Filt Rate 50; Glucose 105 mg/dL (65-110); Sodium 139 mmol/L (137-145)
[2023-10-17 10:06] LABS: Prothrombin Time 13.4 Seconds (11.1-14.7)
== END 2023-10-17 09:28 | disposition home or self-care (01) ==
LOC: ANHSURGERY 09:32
PROVIDERS: Anesthesiology; PCP Family Medicine; Visit Provider Plastic Surgery
DX: Z01.818 Encounter for other preprocedural examination (principal); N28.9 Disorder of kidney and ureter, unspecified; D64.9 Anemia, unspecified
CPT/HCPCS: 36415; 80048; 85014; 85018; 85610; 85730

== ENCOUNTER 2023-10-23 00:24 | Day surgery (SDC) | payer MEDICARE, SELFPAY ==
[2023-10-09 14:49] VITALS: BMI 41.3
--- NOTE | 2023-10-09 15:16 | PC.NURSE ---
Addendum entered by Renetta Loyola RN 10/09/23 15:22: DISREGARD/SEE UPDATED INSTRUCTIONS Original Note: Report to the Outpatient Waiting Room, entrance under the green pavilion located off [facility], at time __6:30AM on date __10/23/23 . Planned Procedure Time: __8:30AM . Time changes happen often and if your time is changed the preop area will call you the afternoon before. - You and your visitor will be asked to self-screen and do not enter if you have any COVID symptoms. - A mask is optional within the hospital at this time. Patients may have clear liquids (water, carbonated beverages, clear teas, apple juice) until 3 hours prior to surgery with a maximum of 20 ounces. - No food from midnight until time of surgery. Take the following medications with a SIP of water the morning of surgery: ____ADVAIR DISKUS, INCRUSE ELLIPTA, LEVOTHYROXINE, METOPROLOL, DALIRESP. MAY USE ALBUTEROL INHALER AND ALPRAZOLAM NEEDED DO NOT STOP ANY OF YOUR OTHER PRESCRIPTION MEDICATIONS PRIOR TO SURGERY ?EXCEPT THE FOLLOWING Medications to discontinue per physician __HOLD ASPIRIN PER DR SANDOVAL-PATIENT TO CALL OFFICE TO VERIFY. HOLD ALL VITAMINS/SUPPLEMENTS 3 DAYS PRE-OP PER ANESTHESIA Date to take last dose 10/19/23 Please no make-up, nail yi, hairspray, perfume, deodorant, or body powder the day of surgery. No jewelry (including any body piercings) or valuables the day of surgery, leave them at home. Please take a shower or bath the night before, or the morning of, surgery with an antibacterial soap. Wear comfortable, loose fitting clothing. - Jewelry must be removed prior to entering the operating room. Rings and piercings that are not removed may be cut off. - The hospital will not accept responsibility for valuables. - Please leave all valuables, including medications, at home the day of surgery. If you are going home after surgery, a licensed pharmacy delivery driver must drive you home. - NO public transportation without another adult if you receive anesthesia. - We recommend that an adult stay with you for 24 hours following discharge. - We also recommend that you do not drive, make important decision, drink alcoholic beverages, or take any drugs that were not prescribed by your health care provider for at least 24 hours after your discharge time. Follow any additional instructions given to you from your surgeon. If you or anyone in your household have experienced Covid symptoms in the past week, please notify your surgeon or the nurse liaison at the phone number below for possible testing. Telephone instructions given to ____PATIENT and asked if any additional questions and then verbalized understanding. Patient advised to call surgeon office or pre surgery nurse liaison [phone] if any additional questions. Report to the Outpatient Waiting Room, entrance under the okay pavilion located off [facility], at time on date . Planned Procedure Time: . Time changes happen often and if your time is changed the preop area will call you the afternoon before. - You and your visitor will be asked to self-screen and do not enter if you have any COVID symptoms. - A mask is optional within the hospital at this time. Patients may have clear liquids (water, carbonated beverages, clear teas, apple juice) until 3 hours prior to surgery with a maximum of 20 ounces. - No food from midnight until time of surgery - Infants may have breast milk until 4 hours before surgery, formula 6 hours prior to surgery. - Children will be allowed to drink immediately following surgery. If applicable, please bring a bottle or sippy cup to assist with drinking. Juice, water, soda, and popsicles are readily available. For infants on formula, please bring formula the day of surgery. Pacifiers are allowed. Take the following medications with a SIP of wate
--- NOTE | 2023-10-09 15:23 | PC.NURSE ---
Report to the Outpatient Waiting Room, entrance under the green pavilion located off [facility], at time __6:30AM on date __10/23/23 . Planned Procedure Time: __8:30AM . Time changes happen often and if your time is changed the preop area will call you the afternoon before. - You and your visitor will be asked to self-screen and do not enter if you have any COVID symptoms. - A mask is optional within the hospital at this time. NOTHING TO EAT OR DRINK AFTER MIDNIGHT BEFORE SURGERY. Take the following medications with a SIP of water the morning of surgery: ___ADVAIR DISKUS, INCRUSE ELLIPTA, LEVOTHYROXINE, METOPROLOL, DALIRESP. MAY USE ALBUTEROL INHALER & ALPRAZOLAM NEEDED. DO NOT STOP ANY OF YOUR OTHER PRESCRIPTION MEDICATIONS PRIOR TO SURGERY ?EXCEPT THE FOLLOWING Medications to discontinue per physician ___HOLD ASPIRIN PER DR SANDOVAL-PATIENT TO CALL OFFICE TO CONFIRM. HOLD ALL VITAMINS/SUPPLEMENTS 3 DAYS PRE-OP PER ANESTHESIA Date to take last dose___10/19/23 Please no make-up, nail serbian, hairspray, perfume, deodorant, or body powder the day of surgery. No jewelry (including any body piercings) or valuables the day of surgery, leave them at home. Please take a shower or bath the night before, or the morning of, surgery with an antibacterial soap. Wear comfortable, loose fitting clothing. - Jewelry must be removed prior to entering the operating room. Rings and piercings that are not removed may be cut off. - The hospital will not accept responsibility for valuables. - Please leave all valuables, including medications, at home the day of surgery. If you are going home after surgery, a licensed non emergency services ambulance driver must drive you home. - NO public transportation without another adult if you receive anesthesia. - We recommend that an adult stay with you for 24 hours following discharge. - We also recommend that you do not drive, make important decision, drink alcoholic beverages, or take any drugs that were not prescribed by your health care provider for at least 24 hours after your discharge time. Follow any additional instructions given to you from your surgeon. If you or anyone in your household have experienced Covid symptoms in the past week, please notify your surgeon or the nurse liaison at the phone number below for possible testing. Telephone instructions given to ___PATIENT and asked if any additional questions and then verbalized understanding. Patient advised to call surgeon office or pre surgery nurse liaison [phone] if any additional questions.
[2023-10-23 06:15] VITALS: BP 123/68; PULSE 59; RESP 16; TEMP 37.1; O2SAT 94
--- NOTE | 2023-10-23 06:57 | WPDHPUPDATE1 ---
History and Physical Update Update Date/Time: 10/23/23 06:57 Patient seen and examined in pre-operative holding area. No interval change in medical history or symptoms. Patient recalls previous discussion of benefits and alternatives to procedure. Continues to desire to proceed with left endoscopic possible open carpal tunnel release and left cubital tunnel release. Reviewed procedure, post-op expectations and risks including but not limited to bleeding, infection, injury to tendon/nerve/vessel, decreased hand function, stiffness, RSD, no change or worsening of symptoms. I discussed the possible use of assistants and their participation in the case. Patient stated understanding and signed the consent form wishing to proceed.
[2023-10-23 06:59] VITALS: BMI 41.3
--- NOTE | 2023-10-23 07:01 | PM.HPGS ---
History of Present Illness History of Present Illness Chief complaint: left carpal and cubital tunnel syndrome Narrative: Patient seen and examined in pre-operative holding area. No interval change in medical history or symptoms. Patient recalls previous discussion of benefits and alternatives to procedure. Continues to desire to proceed with left endoscopic possible open carpal tunnel release and left cubital tunnel release. Reviewed procedure, post-op expectations and risks including but not limited to bleeding, infection, injury to tendon/nerve/vessel, decreased hand function, stiffness, RSD, no change or worsening of symptoms. I discussed the possible use of assistants and their participation in the case. Patient stated understanding and signed the consent form wishing to proceed. Review of Systems Review of Systems: All systems reviewed & are unremarkable except as noted in HPI and below PMFSH Past Medical History Medical History (Updated 10/18/23 @ 09:37 by Jose Armando Quarles MD) Abdominal aortic aneurysm (AAA) 3.0 cm to 5.5 cm in diameter in male infrarenal AAA followed by vascular surgeon with current 3.8 cm by ultrasound 12/27/2020 Anemia Hemoglobin 12.5, hematocrit 38.6, iron 58, vitamin B12 852, folic acid 4.7 on 09/15/2021. Hemoglobin normal at 13.6 on 05/14/2022. Hemoglobin 12.6, iron 69 with 20% saturation and ferritin 65 with vitamin B12 473 folic acid 16.4 on 08/01/2023. Hemoglobin 12.4 on 10/17/2023. BMI 38.0-38.9,adult BMI 45.0-49.9, adult Body mass index (BMI) 40.0-44.9, adult (10/06/18) BPH without obstruction/lower urinary tract symptoms PSA normal at 0.17 on 05/09/2021 Carpal tunnel syndrome on both sides Severe bilateral carpal tunnel syndrome on EMG and nerve conduction study on 03/20/2023. Chronic left hip pain x-ray of the hips and pelvis on 08/08/2023 reveals no bony defects of the hips. Severe lumbar spondylosis noted. Chronic low back pain with bilateral sciatica X-ray of the lumbar spine on 08/08/2023 reveals severe degenerative disc disease at L4-L5 with severe facet arthritis with moderate disease at L2-L3 and L5-S1. Chronic pain of right knee total knee replacement Encounter for hepatitis C screening test for low risk patient (07/30/20) hepatitis-C screening negative on 07/30/2020 Encounter for prostate cancer screening PSA 0.76 on 05/14/2022. Folic acid deficiency (09/15/21) level low at 4.7 on 09/15/2021. Level normal at 11.5 on 05/14/2022 with hemoglobin 13.6. Fungal nail infection Insomnia Morbid obesity with BMI of 40.0-44.9, adult Morbid obesity with BMI of 45.0-49.9, adult Parkinsons Peripheral vascular disease Polyp of colon history of adenomatous polyps.multiple colon polyps ascending and descending colon, tubular adenoma X 11, 05/31/2023 with recheck in 3 years. Preoperative clearance Sleep disturbance SOB (shortness of breath) on exertion Tobacco use disorder, continuous 1/2 of a pack daily. Screening CT of the lungs 06/14/2023 was negative. Toe cyanosis arterial Doppler study 05/25/2020 with normal DARREL with decreased TBI bilaterally. Trigger finger of right hand Ulnar neuropathy of both upper extremities (~03/20/23) bilateral ulnar neuropathy on EMG and nerve conduction study 03/20/2023. UTI (urinary tract infection) Venous stasis dermatitis of both lower extremities Surgical History Surgical History History of total left knee replacement Family History Family History Father Diabetes mellitus, Onset Age: 68 Malignant neoplasm of prostate, Onset Age: 78 Family history of suicide, Onset Age: 78 Family history of Parkinson's disease, Onset Age: 78 Mother Depression, Onset Age: 82 Family history of malignant neoplasm of breast Family history of mental disorder, Onset Age: 82 Family history of malignant neoplasm of breast in first degree r
--- NOTE | 2023-10-23 07:01 | W.PM.PROC2 ---
Procedure Note - Detailed Date of Procedure 10/23/23 Pre-op Diagnosis left carpal and cubital tunnel syndrome Post-op Diagnosis Same Procedure Performed left ectr and CuTR Surgeon Iveth Nixon MD Wireless Technician kristofer Mcmullen PA-C Anesthesia MAC Description of Procedure INFORMED CONSENT: The patient was seen and examined and marked in the pre-op area.? The patient signed the consent form. PROCEDURE IN DETAIL:The patient taken back to OR on the stretcher in supine position. Time out performed with anesthesia, surgeon and staff agreeing on patient's name site and surgery to be performed SCDs were placed on the lower extremities and inflated. A tourniquet was placed on {left} upper extremity and antibiotics given IV After anesthesia administered sedation I injected {10}cc 1%lido with epi and 0.5% marcaine plain at the operative sites The?{left upper extremity}?was prepped and draped in sterile fashion the??{left upper extremity} was? exsanguinated with Esmarch bandage and tourniquet inflated to 250mmHg I made a transverse incision in the {left} volar distal wrist crease through skin and dermis with 15 blade scalpel.? Littler scissors spread down to antebrachial fascia. A small incision was made in antebrachial fascia allowing access to Carpal tunnel. I proceeded with sequential dilation staying in line with the ring finger and hugging the hook of the hamate.? I then used the synovial elevator to free any adhesions from the underside of the transverse carpal ligament. Next I was able to insert the Microaire endoscopic carpal tunnel device with direct visualization of the transverse fibers on the monitor and proceeded with complete segmental retrograde release of the ligament in its entirety.? I irrigated with normal saline and closed with 4-0 monocryl for dermis and subcuticular closure. I next proceeded with making a longitudinal incision between two heads for flexor carpi ulnaris at end of {left} cubital tunnel with 15 blade scalpel.? Littler scissors were used to spread down to FCU fascia.? An incision was made in FCU fascia and ulnar nerve identified exiting cubital tunnel.? I proceeded with complete retrograde release of the cubital tunnel including 7cm proximal for the intermuscular septum.? The nerve appeared healthy with visible vaso nervorum.? There was no subluxation on full elbow range of motion. ? I irrigated with normal saline and closure with 4-0 monocryl for dermis and subcuticular. The incisiona were covered with Dermabond then 4x4s, alejandro, and a posterior elbow and volar wrist splint for patient safety, security and comfort and secured with wandy bandages after the tourniquet was let down noting the hand was warm and well perfused.? Patient awaken from anesthesia and transferred to recovery in stable condition ? Complications - none EBL- 0cc Disposition - home in stable conditions kristofer Mcmullen PA-C was essential for positioning, retraction, closure and dressing placement [facility] Billing Surgery - Charge Forward: Surgery Billing ([id number] for kristofer)
[2023-10-23] MEDS: LACTATED RINGERS 1,000 ML 30 ML IV CONT (07:30)
--- NOTE | 2023-10-23 07:30 | WPDANESEPPF ---
Anes - Initial Pre Proc Eval Procedure: Operation Date: 10/23/23 08:30 Proposed Procedures p Left Endoscopic Carpal Tunnel Release, Possible Open, Left Cubital Tunnel Release - Iveth Nixon MD Date/Time: 10/23/23 07:30 Surgeon: Iveth Nixon MD Pre Op Diagnosis: left carpal and cubital tunnel syndrome Patient Data Age: 72 Gender: M Height: 1.75 m Weight: 126.9 kg Allergies Allergy/AdvReac Type Severity Reaction Status Date / Time No Known Allergies Allergy Verified 10/23/23 07:27 Home Medications Medication Instructions Recorded Confirmed Type aspirin 81 mg tablet,delayed 81 mg PO DAILY 04/09/19 10/09/23 History release cyanocobalamin (vitamin B-12) 2,500 mcg sublingual DAILY 04/09/19 10/09/23 History 2,500 mcg sublingual lozenge multivitamin,hd-[id number] 1 tablet PO DAILY 04/09/19 10/09/23 History (Complete Multivitamin tablet) folic acid 1 mg tablet 1 mg PO DAILY #90 tabs 09/19/21 10/09/23 Rx atorvastatin 40 mg tablet 40 mg PO DAILY #90 tabs 07/12/23 10/09/23 Rx fluticasone 250 mcg-salmeterol 50 1 inh inhalation BID #180 ea 07/12/23 10/09/23 Rx mcg/dose blistr powdr for inhalation (Advair Diskus) umeclidinium 62.5 mcg/actuation See Rx Instructions .Route 07/12/23 10/09/23 Rx blister powder for inhalation .COMPLEX #90 grams (Incruse Ellipta) albuterol sulfate 90 mcg/actuation See Rx Instructions .Route 08/02/23 10/09/23 Rx aerosol inhaler .COMPLEX #25.5 grams alprazolam 0.25 mg tablet (Xanax) 0.25 mg PO DAILY PRN anxiety #60 08/08/23 10/09/23 Rx tabs ferrous sulfate 325 mg (65 mg 325 mg PO DAILY 08/08/23 10/09/23 History iron) tablet (iron) levothyroxine 100 mcg tablet 100 mcg PO QAM 08/08/23 10/09/23 History metoprolol succinate 100 mg 100 mg PO QAM 08/08/23 10/09/23 History tablet,extended release 24 hr roflumilast 500 mcg tablet 500 mcg PO QAM 08/08/23 10/09/23 History (Daliresp) ropinirole 5 mg tablet 5 mg PO HS PRN Restless Leg(S) 08/08/23 10/09/23 History sildenafil 100 mg tablet (Viagra) 100 mg PO DAILY PRN sexual 09/05/23 10/09/23 Rx activity #60 tabs irbesartan 300 mg tablet 300 mg PO DAILY #90 tabs 10/03/23 10/09/23 Rx tamsulosin 0.4 mg capsule 0.4 mg PO HS 10/09/23 10/09/23 History Patient hx anesthesia problems: none Family hx anesthesia problems: none Results Review: All pre-operative results and documents have been reviewed as part of the pre-operative evaluation. [facility] Past Medical History Medical History (Updated 10/18/23 @ 09:37 by Jose Armando Quarles MD) Abdominal aortic aneurysm (AAA) 3.0 cm to 5.5 cm in diameter in male infrarenal AAA followed by vascular surgeon with current 3.8 cm by ultrasound 12/27/2020 Anemia Hemoglobin 12.5, hematocrit 38.6, iron 58, vitamin B12 852, folic acid 4.7 on 09/15/2021. Hemoglobin normal at 13.6 on 05/14/2022. Hemoglobin 12.6, iron 69 with 20% saturation and ferritin 65 with vitamin B12 473 folic acid 16.4 on 08/01/2023. Hemoglobin 12.4 on 10/17/2023. BMI 38.0-38.9,adult BMI 45.0-49.9, adult Body mass index (BMI) 40.0-44.9, adult (10/06/18) BPH without obstruction/lower urinary tract symptoms PSA normal at 0.17 on 05/09/2021 Carpal tunnel syndrome on both sides Severe bilateral carpal tunnel syndrome on EMG and nerve conduction study on 03/20/2023. Chronic left hip pain x-ray of the hips and pelvis on 08/08/2023 reveals no bony defects of the hips. Severe lumbar spondylosis noted. Chronic low back pain with bilateral sciatica X-ray of the lumbar spine on 08/08/2023 reveals severe degenerative disc disease at L4-L5 with severe facet arthritis with moderate disease at L2-L3 and L5-S1. Chronic pain of right knee total knee replacement Encounter for hepatitis C screening test for low risk patient (07/30/20) hepatitis-C screening negative on 07/30/2020 Encounter for prostate cancer screening PSA 0.76 on 05/14/2022. Folic acid deficiency (09/15/21) level low at 4.7 on 09/01
[2023-10-23] MEDS: ceFAZolin 3 GM/D5W 100 ML 100 ML IVPB (08:17)
[2023-10-23] MEDS: LIDO 1%/EPINEPHRINE/PF 1:200,000 30 ML VIAL 5 ML XX (08:26)
[2023-10-23] MEDS: BUPivacaine HCL 0.5% 10 ML AMP 5 ML INFILTRATE (08:27)
[2023-10-23 08:54] VITALS: BP 85/45; PULSE 59; RESP 16; O2SAT 96
[2023-10-23 09:20] VITALS: BP 114/59; PULSE 49
[2023-10-23 09:45] VITALS: BP 109/64; PULSE 50
== END 2023-10-23 09:55 | disposition home or self-care (01) ==
PROVIDERS: PCP Family Medicine; Visit Provider Plastic Surgery
PROC: 01N54ZZ Release Median Nerve, Percutaneous Endoscopic Approach (ICD-10-PCS; CPT 29848; principal; 2023-10-23 08:30)
DX: G56.02 Carpal tunnel syndrome, left upper limb (principal); G56.22 Lesion of ulnar nerve, left upper limb; I71.40 Abdominal aortic aneurysm, without rupture, unspecified; D64.9 Anemia, unspecified; N40.0 Benign prostatic hyperplasia without lower urinary tract symptoms; G20.A1 Parkinson's disease without dyskinesia, without mention of fluctuations; I73.9 Peripheral vascular disease, unspecified; I87.8 Other specified disorders of veins; Z79.82 Long term (current) use of aspirin; Z79.51 Long term (current) use of inhaled steroids; F17.210 Nicotine dependence, cigarettes, uncomplicated; E66.01 Morbid (severe) obesity due to excess calories; Z68.41 Body mass index [BMI] 40.0-44.9, adult
CPT/HCPCS: 29848; 64718; 36415; 80048; 85014; 85018; 85610; 85730; J0690; J2704; J3010; J7120

== ENCOUNTER 2024-05-18 15:38 | Emergency (ER) | payer MEDICARE, SELFPAY ==
[2024-05-18 16:10] VITALS: BP 145/69; PULSE 65; RESP 16; TEMP 36.7; O2SAT 100
--- NOTE | 2024-05-18 17:02 | ED.EXTPRO ---
HPI - Extremity Problem General Chief complaint: Extremity Problem,Nontraumatic Stated complaint: swelling Time Seen by Provider: 05/18/24 17:02 Source: patient, RN notes reviewed and old records reviewed Mode of arrival: ambulatory Limitations: no limitations History of Present Illness HPI Narrative: 73-year-old male presents to the [facility] with bilateral lower leg redness, swelling worse on the right than the left. States it has gotten worse over the last 1-2 days. States that he called his primary care provider was told to come to the Urgent Care for an evaluation Onset (ago): day(s) (1-2) Related Data Home Medications ?Medication ?Instructions ?Recorded ?Confirmed ?Last Taken ?Type aspirin 81 mg tablet,delayed 81 mg PO DAILY 04/09/19 03/25/24 10/19/23 History release cyanocobalamin (vitamin B-12) 2,500 mcg sublingual DAILY 04/09/19 03/25/24 10/19/23 History 2,500 mcg sublingual lozenge multivitamin,jt-[id number] 1 tablet PO DAILY 04/09/19 03/25/24 10/19/23 History (Complete Multivitamin tablet) ferrous sulfate 325 mg (65 mg 325 mg PO DAILY 08/08/23 03/25/24 10/19/23 History iron) tablet (iron) roflumilast 500 mcg tablet 500 mcg PO QAM 08/08/23 03/25/24 Unknown History (Daliresp) tamsulosin 0.4 mg capsule 0.4 mg PO HS 10/09/23 03/25/24 Unknown History Allergies Allergy/AdvReac Type Severity Reaction Status Date / Time No Known Allergies Allergy Verified 05/18/24 17:25 Review of Systems Review of Systems: All systems reviewed & are unremarkable except as noted in HPI and below Constitutional: Constitutional: Reports no additional constitutional complaints ENT: Reports system reviewed and no additional complaints, except as documented Cardiovascular: Cardiovascular: Reports no additional cardiovascular complaints, Denies chest pain and Denies dyspnea Respiratory: Respiratory: Reports no additional respiratory complaints, Denies chest congestion, Denies cough and Denies dyspnea Gastrointestinal: Gastrointestinal: Reports no additional gastrointestinal complaints, Denies abdominal pain, Denies nausea and Denies vomiting Musculoskeletal: Musculoskeletal: Reports as per HPI Integumentary/Breasts: Skin/Breast: Reports system reviewed and no additional complaints, except as docu PMFSH Past Medical History Medical History Olecranon bursitis of left elbow Open wound Basal cell carcinoma, scalp/neck (~01/15/24) 2 X 3cm ulcerated lesion left temporal scalp Chronic low back pain with bilateral sciatica X-ray of the lumbar spine on 08/08/2023 reveals severe degenerative disc disease at L4-L5 with severe facet arthritis with moderate disease at L2-L3 and L5-S1. Chronic left hip pain x-ray of the hips and pelvis on 08/08/2023 reveals no bony defects of the hips. Severe lumbar spondylosis noted. Ulnar neuropathy of both upper extremities (~03/20/23) carpal tunnel release 10/23/2023. bilateral ulnar neuropathy on EMG and nerve conduction study 03/20/2023. Trigger finger of right hand Carpal tunnel syndrome on both sides Severe bilateral carpal tunnel syndrome on EMG and nerve conduction study on 03/20/2023. Polyp of colon history of adenomatous polyps.multiple colon polyps ascending and descending colon, tubular adenoma X 11, 05/31/2023 with recheck in 3 years. Encounter for prostate cancer screening PSA 0.76 on 05/14/2022. Morbid obesity with BMI of 45.0-49.9, adult Morbid obesity with BMI of 40.0-44.9, adult Folic acid deficiency (09/15/21) level low at 4.7 on 09/15/2021. Level normal at 11.5 on 05/14/2022 with hemoglobin 13.6. Parkinsons BMI 45.0-49.9, adult BPH without obstruction/lower urinary tract symptoms PSA normal at 0.17 on 05/09/2021 UTI (urinary tract infection) Anemia Hemoglobin 12.5, hematocrit 38.6, iron 58, vitamin B12 852, folic acid 4.7 on 09/15/2021. Hemoglobin normal at 13.6 on 05/14/2022. Hemoglobin 12.6, iron 69 with 20% saturation and ferritin 65 with vitamin B12 473 folic acid 16.4 on 08/01/2023. Hemoglobin 12.4 on 10/17/2023. Abdominal aortic aneurysm (AAA) 3.0 cm to 5.5 cm in diameter in male infrarenal AAA followed by vascular surgeon with current 3.8 cm by ultrasound 12/27/2020.AAA 4.2 cm on ultrasound 01/23/2024. Insomnia Venous stasis dermatitis of both lower extremities BMI 38.0-38.9,adult Toe cyanosis arterial Doppler study 05/25/2020 with normal DARREL with decreased TBI bilaterally. Chronic pain of right knee total knee replacement Encounter for hepatitis C screening test for low risk patient (07/30/20) hepatitis-C screening negative on 07/30/2020 Fungal nail infection Tobacco use disorder, continuous 1/2 of a pack daily. Screening CT of the lungs 06/14/2023 was negative. Peripheral vascular disease Preoperative clearance Body mass index (BMI) 40.0-44.9, adult (10/06/18) SOB (shortness of breath) on exertion Sleep disturbance Surgical History Surgical History History of coronary artery stent placement x1 -several years ago History of total left knee replacement Family History Family History Father Diabetes mellitus, Onset Age: 68 Malignant neoplasm of prostate, Onset Age: 78 Family history of suicide, Onset Age: 78 Family history of Parkinson's disease, Onset Age: 78 Mother Depression, Onset Age: 82 Family history of malignant neoplasm of breast Family history of mental disorder, Onset Age: 82 Family history of malignant neoplasm of breast in first degree relative, Onset Age: 82 Grandparent Acute myocardial infarction, Onset Age: 65 Sibling Patient's brother is in good health Social History Social History Social History: 1-2ppd history. Now down to 0.5-1ppd. Has a 75-100 pack year. Smoking packs per day: 1 Smoking cigarettes per day: 20.0 Years smoked: 57 Smoking pack-years: 57.00 Smoking status: Current every day smoker Tobacco type: cigarettes Second hand tobacco smoke exposure: Yes Additional smoking assessment comments: 0.5 PACK/DAY NOW Alcohol intake: current Drinks per week: 2 Substance use: never Substance use type: does not use Current Housing: Decline to Answer Concerned About Future Housing: Decline to Answer Difficulty Paying Gas/Electric Bills: Decline to Answer Difficulty Paying for Meds: Decline to Answer Currently Unemployed: Decline to Answer Education: Decline to Answer Difficulty w/ Childcare or Family Care: Decline to Answer Living arrangements: alone Additional living arrangements comments: FRIEND Spiritual care concerns: No Comments At the time of my signature, I reviewed and agree with the nursing past medical, surgical, social, and family history. There is no relevant family history pertinent to the patient complaint. Exam Const: General: cooperative, no acute distress, well developed, alert, ill appearing chronically, uncomfortable and well nourished Nutritional Appearance: well nourished and obese Orientation/consciousness: patient oriented x3 Limitations: no limitations HENMT: Head: normal to inspection Eyes: General: appearance normal, both eyes and all related structures Alignment and Position: alignment normal Periorbital: periorbital findings normal Neck: Neck: normal visual inspection, full ROM, no lymphadenopathy and no meningeal signs Chest: Chest palpation & inspection: normal inspection of the chest Resp: Effort & Inspection: normal respiratory effort and able to speak in complete sentences Cardio: Rate: regular rate Skin: General skin exam: normal color and no rashes or lesions noted Rashes: no rashes Wounds: no wounds Neuro: General: patient oriented x3, gait normal, tone normal, moves all extremities and no meningeal signs Cognition (Neuro): normal cognition Speech: normal speech Gait exam (Neuro): Normal gait present Extrem: General: normal to inspection, full ROM, capillary refill normal and normal gait Ankle/foot/toe images:  1. Erythema to the lower leg, mid calf measures 20.5 inches or 52cm 2. Erythema to the lower leg, measuring 17.25 in or 44cm Psych: Appearance: grossly normal and well kempt Mental Status: mental status grossly normal Speech and movement: Normal speech and movement present and Clear speech present Affect: normal affect Attitude: cooperative Course Course Level of Care: Express Care Visit Vital Signs Vital signs: Vital Signs Temperature 98.0 F 05/18/24 16:10 Pulse Rate 65 05/18/24 16:10 Respiratory Rate 16 05/18/24 16:10 Blood Pressure 145/69 H 05/18/24 16:10 Pulse Oximetry 100 05/18/24 16:10 Oxygen Delivery Room Air 05/18/24 16:10 Temperature 98.0 F 05/18/24 16:10 Pulse Rate 65 05/18/24 16:10 Respiratory Rate 16 05/18/24 16:10 Blood Pressure 145/69 H 05/18/24 16:10 Pulse Oximetry 100 05/18/24 16:10 Oxygen Delivery Room Air 05/18/24 16:10 Reviewed Transfer Transfered to: [facility] Transportation: Other (POV) Transfer rationale: Patient sent to the ER to rule out DVT due to pain, swelling of the right leg Accepting physician: Spoke with Dr. Doe MONTALVO - Extremity (Nontraumatic) [facility] Narrative Medical decision making narrative: Patient sitting in exam room. Nontoxic, vitals are stable. Patient presents with 1-2 day history of increased swelling to the right leg, pain, discomfort, increased redness. Unable to do workup that is needed for this patient sent for higher level of care to the emergency room Transfer instructions reviewed with patient go directly to the ER. All questions have been answered, and the patient deny any further questions with discharge Some parts of this dictation were generated by voice recognition software and may contain typographical and/or grammatical inaccuracies. Differential Diagnosis Differential diagnosis: Likely deep vein thrombosis of lower extremity and other (Poor circulation,) Critical Care Time Critical Care Time Critical Care Time: No Discharge Plan Discharge Clinical Impression: Pain and swelling of right lower extremity Patient Disposition: Acute Care Hospital Condition: Stable Patient Language: Hebrew Prescriptions: No Action alprazolam [Xanax] 0.25 mg tablet 0.25 mg PO BID PRN (Reason: anxiety) Qty: 60 5RF silver sulfadiazine [Silvadene] 1 % cream 1 applic topical BID Qty: 400 1RF Rx Instructions: apply a 1.5 mm thickness to the open wounds twice daily roflumilast [Daliresp] 500 mcg tablet 500 mcg PO QAM ferrous sulfate [iron] 325 mg (65 mg iron) Tablet 325 mg PO DAILY tamsulosin 0.4 mg capsule 0.4 mg PO HS aspirin 81 mg tablet,delayed release (DR/EC) 81 mg PO DAILY Complete Multivitamin Tablet 1 tablet PO DAILY cyanocobalamin (vitamin B-12) 2,500 mcg lozenge 2,500 mcg SUBLINGUAL DAILY folic acid 1 mg tablet 1 mg PO DAILY Qty: 90 3RF atorvastatin 40 mg tablet 40 mg PO DAILY Qty: 90 3RF fluticasone propion-salmeterol [Advair Diskus] 250-50 mcg/dose blister with device 1 inh INHALATION BID Qty: 180 3RF sildenafil [Viagra] 100 mg tablet 100 mg PO DAILY PRN (Reason: sexual activity) Qty: 60 3RF irbesartan 300 mg tablet 300 mg PO DAILY Qty: 90 3RF Rx Instructions: IN AM metoprolol succinate 100 mg tablet extended release 24 hr 100 mg PO DAILY Qty: 90 3RF ropinirole 5 mg tablet 5 mg PO BID Qty: 180 3RF Incruse Ellipta 62.5 mcg/actuation blister with device See Rx Instructions .ROUTE .COMPLEX Qty: 90 3RF Dose Instruction: USE 1 INHALATION ORALLY DAILY AT THE SAME TIME EACHDAY Rx Instructions: USE 1 INHALATION ORALLY DAILY AT THE SAME TIME EACHDAY albuterol sulfate 90 mcg/actuation HFA aerosol inhaler See Rx Instructions .ROUTE .COMPLEX Qty: 25.5 1RF Dose Instruction: USE 1 INHALATION ORALLY EVERY 4 HOURS NEEDED FORSHORTNESS OF BREATH OR WHEEZING. Rx Instructions: USE 1 INHALATION ORALLY EVERY 4 HOURS NEEDED FORSHORTNESS OF BREATH OR WHEEZING. levothyroxine 100 mcg tablet 100 mcg PO QAM Qty: 90 3RF Follow-up/Referrals: Jose Armando Quarles MD [Primary Care Provider] -
== END 2024-05-18 17:08 | disposition short-term general hospital (02) ==
LOC: EXPTROY 16:01
PROVIDERS: Emergency Provider Nurse Practitioner; PCP Family Medicine
DX: M79.661 Pain in right lower leg (principal); R22.41 Localized swelling, mass and lump, right lower limb; G20.A1 Parkinson's disease without dyskinesia, without mention of fluctuations; I73.9 Peripheral vascular disease, unspecified; E66.01 Morbid (severe) obesity due to excess calories; Z68.41 Body mass index [BMI] 40.0-44.9, adult; N40.0 Benign prostatic hyperplasia without lower urinary tract symptoms; D64.9 Anemia, unspecified; Z79.82 Long term (current) use of aspirin; Z85.828 Personal history of other malignant neoplasm of skin
CPT/HCPCS: 99212; G0463

== ENCOUNTER 2024-05-18 17:24 | Emergency (ER) | payer MEDICARE, SELFPAY ==
--- NOTE | ~2024-05-18 | US_ITS ---
EXAMINATION: US venous doppler [facility] DATE: 05/18/2024 20:33 INDICATION: Lower limb pain and swelling. TECHNIQUE: Grayscale ultrasound images without and with compression and Doppler ultrasound images of the bilateral lower extremity veins were obtained. COMPARISON: None. FINDINGS: The visualized portions of right common femoral vein, profunda (deep) femoral vein, femoral vein, pop liteal vein, and greater saphenous vein outflow are patent. The calf veins are not well visualized. The visualized portions of left common femoral vein, profunda femoral vein, femoral vein, popliteal v ein, and greater saphenous vein outflow are patent. The calf veins are not well visualized. IMPRESSION: 1. No deep venous thrombosis. Calf veins not well visualized. Reviewed, dictated and finalized at location [facility]
[2024-05-18 18:16] VITALS: BP 166/66; PULSE 65; RESP 18; TEMP 36.9
--- NOTE | 2024-05-18 18:17 | ED_ITS ---
HPI - Extremity Problem General Chief complaint: Extremity Problem,Nontraumatic <Warren Briceño APRN - Last Filed: 05/18/24 18:20> Stated complaint: R LEG PAIN R/O DVT <Warren Briceño APRN - Last Filed: 05/18/24 18:20> Time Seen by Provider: 05/18/24 20:41 <Warren Briceño APRN - Last Filed: 05/18/24 18:20> 73 y/o male presents with increased swelling to right lower leg x 2 days. patient states the symptoms are getting worse. patient has a hx of pvd but denies blood clots. patient is on ASA daily general:obese in NAD RESP: CTA in all [place] ext: bilateral swelling and redness to bilateral legs abdomen: soft and non-tender skin: erythema to bilateral LE <Warren Briceño APRN - Last Filed: 05/18/24 18:20> History of Present Illness HPI Narrative: Agree with HPI <Corey Azar MD - Last Filed: 05/18/24 21:18> Related Data Home medications: Home Medications ?Medication ?Instructions ?Recorded ?Confirmed ?Last Taken ?Type aspirin 81 mg tablet,delayed 81 mg PO DAILY 04/09/19 03/25/24 10/19/23 History release cyanocobalamin (vitamin B-12) 2,500 mcg sublingual DAILY 04/09/19 03/25/24 10/19/23 History 2,500 mcg sublingual lozenge multivitamin,[id number] 1 tablet PO DAILY 04/09/19 03/25/24 10/19/23 History (Complete Multivitamin tablet) ferrous sulfate 325 mg (65 mg 325 mg PO DAILY 08/08/23 03/25/24 10/19/23 History iron) tablet (iron) roflumilast 500 mcg tablet 500 mcg PO QAM 08/08/23 03/25/24 Unknown History (Daliresp) tamsulosin 0.4 mg capsule 0.4 mg PO HS 10/09/23 03/25/24 Unknown History <Warren Briceño APRN - Last Filed: 05/18/24 18:20> Allergies/Adverse reactions: Allergies Allergy/AdvReac Type Severity Reaction Status Date / Time No Known Allergies Allergy Verified 05/18/24 17:25 <Warren Briceño APRN - Last Filed: 05/18/24 18:20> Review of Systems 2 Constitutional: Constitutional: Reports no additional constitutional complaints <Corey Azar MD - Last Filed: 05/18/24 21:18> Cardiovascular: Cardiovascular: Reports no additional cardiovascular complaints <Corey Azar MD - Last Filed: 05/18/24 21:18> Gastrointestinal: Gastrointestinal: Reports no additional gastrointestinal complaints <Corey Azar MD - Last Filed: 05/18/24 21:18> Musculoskeletal: Comments: Bilateral lower extremity leg swelling <Corey Azar MD - Last Filed: 05/18/24 21:18> Integumentary/Breasts: Skin/Breast: Denies pruritus, Reports erythema and Reports rash <Corey Azar MD - Last Filed: 05/18/24 21:18> PMFSH Past Medical History Medical History: Medical History Olecranon bursitis of left elbow Open wound Basal cell carcinoma, scalp/neck (~01/15/24) 2 X 3cm ulcerated lesion left temporal scalp Chronic low back pain with bilateral sciatica X-ray of the lumbar spine on 08/08/2023 reveals severe degenerative disc disease at L4-L5 with severe facet arthritis with moderate disease at L2-L3 and L5-S1. Chronic left hip pain x-ray of the hips and pelvis on 08/08/2023 reveals no bony defects of the hips. Severe lumbar spondylosis noted. Ulnar neuropathy of both upper extremities (~03/20/23) carpal tunnel release 10/23/2023. bilateral ulnar neuropathy on EMG and nerve conduction study 03/20/2023. Trigger finger of right hand Carpal tunnel syndrome on both sides Severe bilateral carpal tunnel syndrome on EMG and nerve conduction study on 03/20/2023. Polyp of colon history of adenomatous polyps.multiple colon polyps ascending and descending colon, tubular adenoma X 11, 05/31/2023 with recheck in 3 years. Encounter for prostate cancer screening PSA 0.76 on 05/14/2022. Morbid obesity with BMI of 45.0-49.9, adult Morbid obesity with BMI of 40.0-44.9, adult Folic acid deficiency (09/15/21) level low at 4.7 on 09/15/2021. Level normal at 11.5 on 05/14/2022 with hemoglobin 13.6. Parkinsons BMI 45.0-49.9, adult BPH without obstruction/lower urinary tract symptoms PSA normal at 0.17 on 05/09/2021 UTI (urinary tract infection) Anemia Hemoglobin 12.5, hematocrit 38.6, iron 58, vitamin B12 852, folic acid 4.7 on 09/15/2021. Hemoglobin normal at 13.6 on 05/14/2022. Hemoglobin 12.6, iron 69 with 20% saturation and ferritin 65 with vitamin B12 473 folic acid 16.4 on 08/01/2023. Hemoglobin 12.4 on 10/17/2023. Abdominal aortic aneurysm (AAA) 3.0 cm to 5.5 cm in diameter in male infrarenal AAA followed by vascular surgeon with current 3.8 cm by ultrasound 12/27/2020.AAA 4.2 cm on ultrasound 01/23/2024. Insomnia Venous stasis dermatitis of both lower extremities BMI 38.0-38.9,adult Toe cyanosis arterial Doppler study 05/25/2020 with normal DARREL with decreased TBI bilaterally. Chronic pain of right knee total knee replacement Encounter for hepatitis C screening test for low risk patient (07/30/20) hepatitis-C screening negative on 07/30/2020 Fungal nail infection Tobacco use disorder, continuous 1/2 of a pack daily. Screening CT of the lungs 06/14/2023 was negative. Peripheral vascular disease Preoperative clearance Body mass index (BMI) 40.0-44.9, adult (10/06/18) SOB (shortness of breath) on exertion Sleep disturbance <Warren Briceño APRN - Last Filed: 05/18/24 18:20> Surgical History Surgical History: Surgical History History of coronary artery stent placement x1 -several years ago History of total left knee replacement <Warren Briceño APRN - Last Filed: 05/18/24 18:20> Family History Family History: Family History Father Diabetes mellitus, Onset Age: 68 Malignant neoplasm of prostate, Onset Age: 78 Family history of suicide, Onset Age: 78 Family history of Parkinson's disease, Onset Age: 78 Mother Depression, Onset Age: 82 Family history of malignant neoplasm of breast Family history of mental disorder, Onset Age: 82 Family history of malignant neoplasm of breast in first degree relative, Onset Age: 82 Grandparent Acute myocardial infarction, Onset Age: 65 Sibling Patient's brother is in good health <Warren Briceño APRN - Last Filed: 05/18/24 18:20> Social History Social History: Social History Social History: 1-2ppd history. Now down to 0.5-1ppd. Has a 75-100 pack year. Smoking packs per day: 1 Smoking cigarettes per day: 20.0 Years smoked: 57 Smoking pack-years: 57.00 Smoking status: Current every day smoker Tobacco type: cigarettes Second hand tobacco smoke exposure: Yes Additional smoking assessment comments: 0.5 PACK/DAY NOW Alcohol intake: current Drinks per week: 2 Substance use: never Substance use type: does not use Current Housing: Decline to Answer Concerned About Future Housing: Decline to Answer Difficulty Paying Gas/Electric Bills: Decline to Answer Difficulty Paying for Meds: Decline to Answer Currently Unemployed: Decline to Answer Education: Decline to Answer Difficulty w/ Childcare or Family Care: Decline to Answer Living arrangements: alone Additional living arrangements comments: FRIEND Spiritual care concerns: No <Warren Briceño APRN - Last Filed: 05/18/24 18:20> Exam 2 Narrative: GENERAL: Well-appearing, well-nourished, and in no acute distress. HEAD: Normocephalic, atraumatic. ENT: Mucous membranes moist. NECK: Supple. CHEST: Clear to auscultation. No respiratory distress. HEART: Regular rate and rhythm. No Normal peripheral pulses.. EXTREMITIES: Normal range of motion. +2 edema. SKIN: Warm, dry, erythematous lower extremities below the knee likely acute on chronic stasis dermatitis. NEURO: Alert and oriented x3. PSYCH: Normal mood and affect. <Corey Azar MD - Last Filed: 05/18/24 21:18> Course Course Emergency Course: Likely stasis dermatitis but will cover with antibiotics. Discharge with Lasix 20 mg daily and cefuroxime 500 mg b.i.d.. <Corey Azar MD - Last Filed: 05/18/24 21:18> Vital Signs Vital signs: Vital Signs Temperature 98.5 F 05/18/24 18:16 Pulse Rate 65 05/18/24 18:16 Respiratory Rate 18 05/18/24 18:16 Blood Pressure 166/66 H 05/18/24 18:16 Oxygen Delivery Room Air 05/18/24 18:16 Temperature 98.5 F 05/18/24 18:16 Pulse Rate 70 05/18/24 20:46 Respiratory Rate 18 05/18/24 20:46 Blood Pressure 172/89 H 05/18/24 20:46 Pulse Oximetry 94 05/18/24 20:46 Oxygen Delivery Room Air 05/18/24 18:16 <Warren Briceño APRN - Last Filed: 05/18/24 18:20> Vital Signs Temperature 98.5 F 05/18/24 18:16 Pulse Rate 65 05/18/24 18:16 Respiratory Rate 18 05/18/24 18:16 Blood Pressure 166/66 H 05/18/24 18:16 Oxygen Delivery Room Air 05/18/24 18:16 Temperature 98.5 F 05/18/24 18:16 Pulse Rate 70 05/18/24 20:46 Respiratory Rate 18 05/18/24 20:46 Blood Pressure 172/89 H 05/18/24 20:46 Pulse Oximetry 94 05/18/24 20:46 Oxygen Delivery Room Air 05/18/24 18:16 <Corey Azar MD - Last Filed: 05/18/24 21:18> MDM - Extremity (Nontraumatic) Lab Data Result diagrams: 05/18/24 19:00 05/18/24 19:00 <Warren Briceño APRN - Last Filed: 05/18/24 18:20> Labs: Lab Results 05/18/24 Range/Units 19:00 WBC 7.6 (4.5-10.0) K/mm3 RBC 4.16 L (4.6-6.20) M/mm3 Hgb 11.8 L (14.0-18.0) g/dL Hct 37.7 L (42.0-52.0) % MCV 90.6 (80-100) fl MCH 28.4 (26-34) pg MCHC 31.3 L (32-36) g/dl RDW 14.8 H (11.5-14.5) % Plt Count 184 (150-375) k/mm3 MPV 10.2 (7.4-10.4) fl Immature Gran % (Auto) 0.3 (0-0.5) % Neut % (Auto) 73.1 (45.5-73.1) % Lymph % (Auto) 14.6 L (18.3-44.2) % Churchill % (Auto) 6.7 (2.6-8.5) % Eos % (Auto) 4.5 H (0-4.4) % Baso % (Auto) 0.8 (0.2-1.2) % Lymph # (Auto) 1.11 (0.9-3.2) K/mm3 Churchill # (Auto) 0.5 (0.1-0.6) K/mm3 Eos # (Auto) 0.3 (0-0.3) K/mm3 Baso # (Auto) 0.1 (0.0-0.1) K/mm3 Abs Immat Gran (auto) 0.02 (0.00-0.031) K/mm3 Absolute Neuts (auto) 5.6 (1.3-6.7) K/mm3 Absolute Nucleated RBC 0.000 (0.0-0.012) K/mm3 Nucleated RBC % 0.0 (0.0-0.2) % D-Dimer 1.77 H (<0.48) ug/mL Sodium 139 (137-145) mmol/L Potassium 4.5 (3.4-5.0) mmol/L Chloride 105 (98-107) mmol/L Carbon Dioxide 31 H (22-30) mmol/L Anion Gap 3 L (4-12) mmol/L BUN 26 H D (9-20) mg/dL Creatinine 1.70 H (0.7-1.3) mg/dL Estim Creat Clear Calc 46 ml/min Estimated GFR 40 L (59 - ) Glucose 87 (65-110) mg/dL Calcium 9.3 (8.4-10.2) mg/dL NT-Pro-B Natriuret Pep 907 H (19.9-100) pg/mL <Warren Briceño, JUNIOR PROJECT MANAGER - Last Filed: 05/18/24 18:20> Lab Results 05/18/24 Range/Units 19:00 WBC 7.6 (4.5-10.0) K/mm3 RBC 4.16 L (4.6-6.20) M/mm3 Hgb 11.8 L (14.0-18.0) g/dL Hct 37.7 L (42.0-52.0) % MCV 90.6 (80-100) fl MCH 28.4 (26-34) pg MCHC 31.3 L (32-36) g/dl RDW 14.8 H (11.5-14.5) % Plt Count 184 (150-375) k/mm3 MPV 10.2 (7.4-10.4) fl Immature Gran % (Auto) 0.3 (0-0.5) % Neut % (Auto) 73.1 (45.5-73.1) % Lymph % (Auto) 14.6 L (18.3-44.2) % Churchill % (Auto) 6.7 (2.6-8.5) % Eos % (Auto) 4.5 H (0-4.4) % Baso % (Auto) 0.8 (0.2-1.2) % Lymph # (Auto) 1.11 (0.9-3.2) K/mm3 Churchill # (Auto) 0.5 (0.1-0.6) K/mm3 Eos # (Auto) 0.3 (0-0.3) K/mm3 Baso # (Auto) 0.1 (0.0-0.1) K/mm3 Abs Immat Gran (auto) 0.02 (0.00-0.031) K/mm3 Absolute Neuts (auto) 5.6 (1.3-6.7) K/mm3 Absolute Nucleated RBC 0.000 (0.0-0.012) K/mm3 Nucleated RBC % 0.0 (0.0-0.2) % D-Dimer 1.77 H (<0.48) ug/mL Sodium 139 (137-145) mmol/L Potassium 4.5 (3.4-5.0) mmol/L Chloride 105 (98-107) mmol/L Carbon Dioxide 31 H (22-30) mmol/L Anion Gap 3 L (4-12) mmol/L BUN 26 H D (9-20) mg/dL Creatinine 1.70 H (0.7-1.3) mg/dL Estim Creat Clear Calc 46 ml/min Estimated GFR 40 L (59 - ) Glucose 87 (65-110) mg/dL Calcium 9.3 (8.4-10.2) mg/dL NT-Pro-B Natriuret Pep 907 H (19.9-100) pg/mL <Corey Azar MD - Last Filed: 05/18/24 21:18> Discharge Plan Discharge Clinical Impression: Cellulitis <Warren Briceño APRN - Last Filed: 05/18/24 18:20> Patient Disposition: Home, Self-Care <Warren Briceño APRN - Last Filed: 05/18/24 18:20> Condition: Stable <Warren Briceño APRN - Last Filed: 05/18/24 18:20> Instructions: Cellulitis (ED) <Warren Briceño APRN - Last Filed: 05/18/24 18:20> Additional Instructions: Given started on an antibiotic to treat a skin infection. Return the ER if you have chest pain or shortness of breath, he cannot keep down food water, he lose consciousness, have additional concerns. Elevate your leg some wear compressive stockings <Warren Briceño APRN - Last Filed: 05/18/24 18:20> Patient Language: Guatemalan <Warren Briceño APRN - Last Filed: 05/18/24 18:20> Prescriptions: New cefuroxime axetil 500 mg tablet 500 mg PO Q12H Qty: 14 0RF furosemide [Lasix] 20 mg tablet 20 mg PO DAILY Qty: 5 0RF No Action alprazolam [Xanax] 0.25 mg tablet 0.25 mg PO BID PRN (Reason: anxiety) Qty: 60 5RF silver sulfadiazine [Silvadene] 1 % cream 1 applic topical BID Qty: 400 1RF Rx Instructions: apply a 1.5 mm thickness to the open wounds twice daily roflumilast [Daliresp] 500 mcg tablet 500 mcg PO QAM ferrous sulfate [iron] 325 mg (65 mg iron) Tablet 325 mg PO DAILY tamsulosin 0.4 mg capsule 0.4 mg PO HS aspirin 81 mg tablet,delayed release (DR/EC) 81 mg PO DAILY Complete Multivitamin Tablet 1 tablet PO DAILY cyanocobalamin (vitamin B-12) 2,500 mcg lozenge 2,500 mcg SUBLINGUAL DAILY folic acid 1 mg tablet 1 mg PO DAILY Qty: 90 3RF atorvastatin 40 mg tablet 40 mg PO DAILY Qty: 90 3RF fluticasone propion-salmeterol [Advair Diskus] 250-50 mcg/dose blister with device 1 inh INHALATION BID Qty: 180 3RF sildenafil [Viagra] 100 mg tablet 100 mg PO DAILY PRN (Reason: sexual activity) Qty: 60 3RF irbesartan 300 mg tablet 300 mg PO DAILY Qty: 90 3RF Rx Instructions: IN AM metoprolol succinate 100 mg tablet extended release 24 hr 100 mg PO DAILY Qty: 90 3RF ropinirole 5 mg tablet 5 mg PO BID Qty: 180 3RF Incruse Ellipta 62.5 mcg/actuation blister with device See Rx Instructions .ROUTE .COMPLEX Qty: 90 3RF Dose Instruction: USE 1 INHALATION ORALLY DAILY AT THE SAME TIME EACHDAY Rx Instructions: USE 1 INHALATION ORALLY DAILY AT THE SAME TIME EACHDAY albuterol sulfate 90 mcg/actuation HFA aerosol inhaler See Rx Instructions .ROUTE .COMPLEX Qty: 25.5 1RF Dose Instruction: USE 1 INHALATION ORALLY EVERY 4 HOURS NEEDED FORSHORTNESS OF BREATH OR WHEEZING. Rx Instructions: USE 1 INHALATION ORALLY EVERY 4 HOURS NEEDED FORSHORTNESS OF BREATH OR WHEEZING. levothyroxine 100 mcg tablet 100 mcg PO QAM Qty: 90 3RF <Warren Briceño APRN - Last Filed: 05/18/24 18:20> Follow-up/Referrals: Jose Armando Quarles MD [Primary Care Provider] - 3 Days <Warren Briceño APRN - Last Filed: 05/18/24 18:20>
[2024-05-18 19:10] LABS: Basophils Absolute Auto 0.1 K/mm3 (0.0-0.1); Basophils Percent Auto 0.8 % (0.2-1.2); Eosinophils Absolute Auto 0.3 K/mm3 (0-0.3); Eosinophils Percent Auto 4.5 % (0-4.4); Hematocrit 37.7 % (42.0-52.0); Hemoglobin 11.8 g/dL (14.0-18.0); Immature Granulocyte Absolute 0.02 K/mm3 (0.00-0.031); Immature Granulocyte Percent A 0.3 % (0-0.5); Lymphocytes Absolute Auto 1.11 K/mm3 (0.9-3.2); Lymphocytes Percent Auto 14.6 % (18.3-44.2); Mean Corpuscular HGB Conc 31.3 g/dl (32-36); Mean Corpuscular Hemoglobin 28.4 pg (26-34); Mean Corpuscular Volume 90.6 fl (80-100); Mean Platelet Volume 10.2 fl (7.4-10.4); Monocytes Absolute Auto 0.5 K/mm3 (0.1-0.6); Monocytes Percent Auto 6.7 % (2.6-8.5); Neutrophils Absolute Auto 5.6 K/mm3 (1.3-6.7); Neutrophils Percent Auto 73.1 % (45.5-73.1); Platelet Count Result 184 k/mm3 (150-375); Red Blood Count 4.16 M/mm3 (4.6-6.20); Red Cell Distribution Width 14.8 % (11.5-14.5); White Blood Count 7.6 K/mm3 (4.5-10.0)
[2024-05-18 19:24] LABS: Anion Gap 3 mmol/L (4-12); Blood Urea Nitrogen 26 mg/dL (9-20); Calcium 9.3 mg/dL (8.4-10.2); Carbon Dioxide 31 mmol/L (22-30); Chloride 105 mmol/L (98-107); Estimated CRCL calculation 46 ml/min; Estimated Glomerular Filt Rate 40; Glucose 87 mg/dL (65-110); Potassium 4.5 mmol/L (3.4-5.0); Sodium 139 mmol/L (137-145)
[2024-05-18 19:32] LABS: NT Pro B Type Natriuretic Pept 907 pg/mL (19.9-100)
[2024-05-18 20:05] LABS: D Dimer 1.77 ug/mL (<0.48)
[2024-05-18 20:46] VITALS: BP 172/89; PULSE 70; RESP 18; O2SAT 94
[2024-05-18 20:50] VITALS: PULSE 71; RESP 20; O2SAT 100
[2024-05-18 21:02] VITALS: BP 156/86; PULSE 73; RESP 25; TEMP 36.7; O2SAT 94
[2024-05-18 21:15] VITALS: PULSE 77; RESP 22; O2SAT 95
[2024-05-18] MEDS: cefuroxime axetiL 250 MG TABLET 500 MG PO (21:44)
== END 2024-05-18 21:52 | disposition home or self-care (01) ==
PROVIDERS: Nurse Practitioner Family; Emergency Provider Emergency Medicine; PCP Family Medicine
DX: L03.115 Cellulitis of right lower limb (principal); G20.A1 Parkinson's disease without dyskinesia, without mention of fluctuations; I73.9 Peripheral vascular disease, unspecified; I87.2 Venous insufficiency (chronic) (peripheral); G89.29 Other chronic pain; N40.0 Benign prostatic hyperplasia without lower urinary tract symptoms; E66.01 Morbid (severe) obesity due to excess calories; Z68.41 Body mass index [BMI] 40.0-44.9, adult; M54.42 Lumbago with sciatica, left side; M54.41 Lumbago with sciatica, right side; M25.552 Pain in left hip; F17.210 Nicotine dependence, cigarettes, uncomplicated; Z96.653 Presence of artificial knee joint, bilateral; Z95.5 Presence of coronary angioplasty implant and graft; Z87.440 Personal history of urinary (tract) infections; Z86.0101 Personal history of adenomatous and serrated colon polyps; Z85.828 Personal history of other malignant neoplasm of skin; Z79.82 Long term (current) use of aspirin; Z79.899 Other long term (current) drug therapy
CPT/HCPCS: 36415; 80048; 83880; 85025; 85380; 93970; 99284; A9270

== ENCOUNTER 2024-06-01 14:06 | Outpatient (CLI) | payer MEDICARE, SELFPAY ==
--- NOTE | ~2024-06-01 | CT_ITS ---
CT Scan of the Chest without Contrast: Clinical Indication: Lung cancer screening, nicotine dependence Technique: Contiguous sections were acquired throughout the chest without intravenous contrast. Dose reduction technique was used on this scan by utilizing automated exposure control and iterative recon struction technique. The dose-length product (DLP) was 419.75 mGy-cm. COMPARISON: 06/14/2023 Findings: There is no evidence of any significant mediastinal, hilar or axillary lymphadenopathy. Extensive cor onary artery calcification present.. There is no evidence of pleural or pericardial effusion. The lungs are clear. No pulmonary nodules or infiltrates are noted. Images through the upper abdomen reveal stable left adrenal adenoma. There is degenerative spondylosi s of the thoracic spine. Impression: Lung RADS 1: Negative. 12 month follow-up screening CT advised. Reviewed, dictated and finalized at [facility]. D SALES ENGINEER Impression: Lung RADS 1: Negative. 12 month follow-up screening CT advised.
== END 2024-06-01 14:07 | disposition home or self-care (01) ==
PROVIDERS: PCP Family Medicine; Visit Provider Physician Assistant
DX: Z12.2 Encounter for screening for malignant neoplasm of respiratory organs (principal); Z87.891 Personal history of nicotine dependence
CPT/HCPCS: 71271